=== PATIENT | male | born 1955 | race Caucasian/White ===

== ENCOUNTER 2020-01-26 10:42 | Inpatient (IN) | payer MEDICARE ==
[~2020-01-26] VITALS: Ht 177.8 cm; Wt 101.6 kg
--- NOTE | 2020-01-26 10:58 | PHYS DOC ---
Past History Past Medical History: Dementia, Depression, High Cholesterol Additional Past Medical Histor: CLL, parkinsonism, sleep apnea Past Surgical History: Pacemaker General Adult EDM: Chief Complaint: MEDICAL CLEARANCE HPI: HPI: Patient is a 64-year-old male who presents to the emergency department for evaluation medically prior to [facility]. He has a history of vascular dementia, and has had declining function over the past several months according to his , with anhedonia, excessive sleeping during the day and wakefulness at night, as well as thoughts of suicide at times. Has gradually been worsening to the point that he presented to the emergency department. His states that he has undergone medical work-up as an outpatient until this point but has not had any brain imaging since the fall. The patient himself denies any pain, is able to answer some basic questions but does not know his age, the month, day of the week. He does have a history of CLL and his states that his white blood cell count seems to run in the 15- 20,000 range, although I do not have any prior labs or medication list currently available. There are no alleviating or exacerbating factors to his symptoms. Review of Systems: Review of Systems: Constitutional: Denies fever or chills Eyes: Denies change in visual acuity HENT: Denies nasal congestion or sore throat Respiratory: Denies cough or shortness of breath Cardiovascular: Denies chest pain or edema GI: Denies abdominal pain, nausea, vomiting, bloody stools or diarrhea : Denies dysuria Musculoskeletal: Denies back pain or joint pain Integument: Denies rash Neurologic: Denies headache, focal weakness or sensory changes. Has had mental status changes gradually worsening over the past several months. Endocrine: Denies polyuria or polydipsia Lymphatic: Denies swollen glands Psychiatric: Denies depression or anxiety Heart Score: Risk Factors: Risk Factors: DM, Current or recent (<one month) smoker, HTN, HLP, family his tory of CAD, obesity. Risk Scores: Score 0 - 3: 2.5% MACE over next 6 weeks - Discharge Home Score 4 - 6: 20.3% MACE over next 6 weeks - Admit for Clinical Observation Score 7 - 10: 72.7% MACE over next 6 weeks - Early Invasive Strategies Physical Exam: PE: PHYSICAL EXAM: CONSTITUTIONAL: Well developed, well nourished HEAD: normocephalic, atraumatic EENT: PERRL, EOMI. Conjunctivae normal color, sclerae non-icteric; moist mucous membranes. NECK: Supple, non-tender; no meningismus. LUNGS: Lungs CTA, breathing even and unlabored. Normal air movement. HEART: Regular rate and rhythm, no murmur CHEST: No deformity; non-tender ABDOMEN: The abdomen is soft, and non-tender, no masses or bruits. EXTREM: Normal ROM; no deformity, no calf tenderness. Normal pulses palpable in all extremities. There is no pedal edema. SKIN: No rash; no diaphoresis NEURO: Alert; normal speech, impaired cognition with confusion, consistent with dementia, CN's grossly intact; strength grossly intact without focal deficit. BACK: No CVA TTP. Current Patient Data: Labs: Laboratory Tests Test 01/26/20 11:02 01/26/20 11:29 White Blood Count 12.2 x10^3/uL Red Blood Count 4.75 x10^6/uL Hemoglobin 14.2 g/dL Hematocrit 42.9 % Mean Corpuscular Volume 90 fL Mean Corpuscular Hemoglobin 30 pg Mean Corpuscular Hemoglobin Concent 33 g/dL Red Cell Distribution Width 14.9 % Platelet Count 214 x10^3/uL Neutrophils (%) (Auto) 32 % Lymphocytes (%) (Auto) 60 % Monocytes (%) (Auto) 6 % Eosinophils (%) (Auto) 2 % Basophils (%) (Auto) 0 % Neutrophils # (Auto) 3.9 x10^3uL Lymphocytes # (Auto) 7.4 x10^3/uL Monocytes # (Auto) 0.7 x10^3/uL Eosinophils # (Auto) 0.2 x10^3/uL Basophils # (Auto) 0.1 x10^3/uL Platelet Estimate Pending Sodium Level 140 mmol/L Potassium Level 3.8 mmol/L Chloride Level 102 mmol/L Carbon Dioxide Level 33 mmol/L Anion Gap 5 Blood Urea Nitrogen 27 mg/dL Creatinine 1.3 mg/dL Estimated GFR (Cockcroft-Gault) 55.6 BUN/Creatinine Ratio 21 Glucose Level 104 mg/dL Calcium Level 8.9 mg/dL Magnesium Level 2.3 mg/dL Total Bilirubin 0.4 mg/dL Aspartate Amino Transf (AST/SGOT) 19 U/L Alanine Aminotransferase (ALT/SGPT) 27 U/L Alkaline Phosphatase 108 U/L Total Protein 7.2 g/dL Albumin 3.6 g/dL Albumin/Globulin Ratio 1.0 Urine Collection Type Unknown Urine Color Yellow Urine Clarity Clear Urine pH 7.0 Urine Specific [place] 1.025 Urine Protein Neg Urine Glucose (UA) Neg mg/dL Urine Ketones (Stick) Neg mg/dL Urine Blood Trace Urine Nitrite Neg Urine Bilirubin Neg Urine Urobilinogen Dipstick 0.2 mg/dL Urine Leukocyte Esterase Neg Urine RBC Occ /HPF Urine WBC Occ /HPF Urine Squamous Epithelial Cells None /LPF Urine Bacteria 0 /HPF Urine Mucus Slight /LPF EKG: EKG: [] Normal sinus rhythm at a rate of 79 bpm with occasional APCs, leftward axis, normal intervals. There are no acute ischemic ST/T changes. Radiology/Procedures: Radiology/Procedures: PROCEDURE: CT HEAD WO CONTRAST Examination: CT HEAD WO CONTRAST History: Reason: AMS / Spl. Instructions: / History: Comparison/Correlation: None Findings: Axial images of the head were obtained without contrast. Atrophy is present. Mild chronic ischemic change of white matter noted. No intracranial hemorrhage, midline shift, or mass effect. Ventricles are large in size but symmetric. Bony structures are unremarkable. Calcification along the falx and tentorium is notable. Impression: Atrophy is present. Ventricular cardiomegaly presumably related to volume loss is present. Correlate for possibility of normal pressure hydrocephalus. [] Course & Med Decision Making: Course & Med Decision Making Pertinent Labs and Imaging studies reviewed. (See chart for details) [] The patient's condition remains stable. He is medically clear for behavioral health admission. Michelleon Disclaimer: Davonte Disclaimer: This electronic medical record was generated, in whole or in part, using a voice recognition dictation system. Departure Departure: Impression: Primary Impression: Dementia Additional Impression: Depression Disposition: ADMITTED INPATIENT Condition: STABLE Referrals: ZAMZAM BALL MD (PCP) Justification of Admission: Justification of Admission: Justification of Admission Dx: Yes Altered Mental Status: Altered Mental Status KATIE LARSON MD Jan 26, 2020 10:58
[2020-01-26 11:24] LABS: BASO # 0.1 x10^3/uL (0.0-0.2); BASO % 0 % (0-3); EOS # 0.2 x10^3/uL (0.0-0.7); EOS % 2 % (0-3); HEMATOCRIT 42.9 % (39.0-53.0); HEMOGLOBIN 14.2 g/dL (13.0-17.5); LYMPH # 7.4 x10^3/uL (1.0-4.8); LYMPH % 60 % (24-48); MEAN CORPUSCULAR HEMOGLOBIN 30 pg (25-35); MEAN CORPUSCULAR HGB CONC 33 g/dL (31-37); MEAN CORPUSCULAR VOLUME 90 fL (79-100); MONO # 0.7 x10^3/uL (0.0-1.1); MONO % 6 % (0-9); NEUT # 3.9 x10^3uL (1.8-7.7); NEUT % 32 % (31-73); PLATELET COUNT 214 x10^3/uL (140-400); RED BLOOD COUNT 4.75 x10^6/uL (4.30-5.70); RED CELL DISTRIBUTION WIDTH 14.9 % (11.5-14.5); WHITE BLOOD COUNT 12.2 x10^3/uL (4.0-11.0)
--- NOTE | 2020-01-26 11:28 | RAD ---
Examination: CT HEAD WO CONTRAST History: Reason: AMS / Spl. Instructions: / History: Comparison/Correlation: None Findings: Axial images of the head were obtained without contrast. Atrophy is present. Mild chronic ischemic change of white matter noted. No intracranial hemorrhage, midline shift, or mass effect. Ventricles are large in size but symmetric. Bony structures are unremarkable. Calcification along the falx and tentorium is notable. Impression: Atrophy is present. Ventricular cardiomegaly presumably related to volume loss is present. Correlate for possibility of normal pressure hydrocephalus. Electronically signed by: Andrea Landrum MD (01/26/2020 11:25 AM) [id number]
[2020-01-26 11:30] LABS: CALCIUM 8.9 mg/dL (8.5-10.1); CREATININE 1.3 mg/dL (0.7-1.3); GFR 55.6; POTASSIUM 3.8 mmol/L (3.5-5.1)
[2020-01-26 11:35] LABS: ALBUMIN 3.6 g/dL (3.4-5.0); MAGNESIUM 2.3 mg/dL (1.8-2.4); TOTAL BILIRUBIN 0.4 mg/dL (0.2-1.0); TOTAL PROTEIN 7.2 g/dL (6.4-8.2)
[2020-01-26 12:04] LABS: BACTERIA,URINE 0 /HPF (0-FEW); BILIRUBIN,URINE NEG (NEG); CLARITY,URINE CLEAR; COLOR,URINE YELLOW; GLUCOSE,URINE NEG (NEG); NITRITE,URINE NEG (NEG); RBC,URINE OCC /HPF (0-2); UROBILINOGEN,URINE 0.2 mg/dL (0.2 mg/dL); WBC,URINE OCC /HPF (0-4)
--- NOTE | 2020-01-26 12:21 | EKG ---
[address] [address] Test Date: 2020-01-26 Test Time: 11:26:06 Pat Name: SHAYNE PINO Department: Room: Gender: M Insurance Assistant: : 1955 Requested By: KATIE LARSON Order Number: [id number] Reading MD: Measurements Intervals [place] Rate: 79 P: MT: QRS: -15 QRSD: 92 T: 13 QT: 396 QTc: 460 Interpretive Statements IRREGULAR RHYTHM, NO P-WAVE FOUND VENTRICULAR PREMATURE COMPLEX(ES) LEFTWARD AXIS CONSIDER RIGHT VENTRICULAR HYPERTROPHY ABNORMAL ECG RI6.02 No previous ECG available for comparison
--- NOTE | 2020-01-26 13:30 | NUR ---
Admission Note with Justification for Admission to [facility] Patient admitted to [facility] for protective oversight for emergency stabilization of acute psychiatric crisis. Pt admitted from: Home where he lives with his Mode of arrival: POV Accompanied By: EMS from the ER Precipitating behaviors that initiated intake and admission: It was reported that patient has been lethargic and anxious. He has been refusing medications at times, staying up all night and sleeping all day. He has no will to live or thrive. According to his he is suicidal but has no plan. He is depressed and confused and aware of his declining cognition. Description of failure of out patient attempts at stabilization in previous setting list behavior and medication trials: patient has been seen by a neurologist and receives psychological counseling. He has had out patient psychoactive medication management done by Emi KILLIAN. He was referred by his PCP office. They have tried Namenda and sertraline. Behaviors and assessment findings upon admission: Patient arrived on unit accompanied by EMS after being cleared medically through [facility]. Patients provided transportation from their home in [place]. Patient was clean and well dressed. When nurse assessed him he had trouble recalling his date, what is did for a living, the current year and almost every other question asked, he was polite but visibly upset that he could not answer the questions. He became frustrated at his lack of being able to find words and remember the answers to questions and became tearful, he is aware that his memory is declining. He denied SI when this nurse asked him but was tearful for most of our conversation. He stated that he and his had moved from [place] three years ago, they came to [place] because she has family here. Vital signs were obtained, belongings inventoried and patient photo taken. Patient stated he was hungry and lunch was given to patient in day room. After arriving in day room he stated he was not hungry. Patients had left a note for [facility] staff that stated that patient "does not like loud noises. He is sensitive to touch. He does not care for fried food and is easily startled. He feels "internally and externally" cold a lot". She also stated that he took his morning medications this morning. Patient is a poor historian about his medical history. He did recall that he has a pacemaker. The rest of the medical history was obtained from the records his PCP sent prior to admission. Plan: Admit for protective oversight for adjustment and stabilization of medications, behaviors and mood. Intense treatment regimen including groups, medication adjustments, therapy, consistent regimen for ADL's, self care, and sleep hygiene. Daily monitoring by Inpatient staff, Psychiatry, and Medical Physician.
[2020-01-26 14:13] VITALS: BP 146/92
[2020-01-26] MEDS ORDERED: METHYL SALICYLATE/MENTHOL TOPICAL OINTMENT 57GM TUBE. TP PRN (14:45)
[2020-01-26] MEDS ORDERED: ACETAMINOPHEN 325 MG TABLET PO PRN (14:45)
[2020-01-26] MEDS ORDERED: MAG HYDROX/AL HYDROX/SIMETH 30 ML ORAL.SUSP PO PRN (14:45)
[2020-01-26 16:55] VITALS: BP 143/73
[2020-01-26] MEDS ORDERED: LACT1CAP29 PO (17:36)
[2020-01-26] MEDS ORDERED: LEVE500T56 PO (17:36)
[2020-01-26] MEDS ORDERED: CALC-144 PO (17:36)
[2020-01-26] MEDS ORDERED: MEMA10TA PO (17:36)
[2020-01-26] MEDS ORDERED: KRIL1CAP21 PO (17:36)
[2020-01-26] MEDS ORDERED: MULT1TAB13 PO (17:36)
[2020-01-26] MEDS ORDERED: MAGN200T PO (17:36)
[2020-01-26] MEDS ORDERED: AMAN100T PO (17:36)
[2020-01-26] MEDS ORDERED: SERT50TA PO (17:36)
[2020-01-26] MEDS: OMEGA-3 FATTY ACIDS/FISH OIL 1,000 MG CAPSULE. PO SCH (21:05)
[2020-01-26] MEDS: levETIRAcetam 500 MG TABLET PO SCH (21:05)
[2020-01-26] MEDS: AMANTADINE HCL 100 MG CAPSULE PO SCH (21:06)
[2020-01-26] MEDS: MAGNESIUM OXIDE 400 MG TABLET PO SCH (21:06)
[2020-01-26] MEDS: MEMANTINE 10 MG TABLET. PO SCH (21:06)
--- NOTE | 2020-01-26 22:07 | HP ---
ADMIT DATE: 01/26/2020 PSYCHIATRIC ADMISSION HISTORY/EVALUATION This note covers elements not covered in my initial note 01/26/2020. SUBJECTIVE: I met with the patient evening of 01/26/2020 at length in his room to evaluate and gather history. Previously discussed with Ledy Gardiner, pricing coordinator. IDENTIFYING DATA: The patient is a 64-year-old male referred by his primary care physician and referred from his home where he lives with his . He has been confused, cognitively declining, lethargic, anxious with no will to live. He has been sleeping all day, has voiced suicidal ideation with no plan. He is frequently up at night. He has failed outpatient psychiatric intervention, with overall coming this referral from his primary care physician, Dr. Feng Linares from the [facility]. CHIEF COMPLAINT: "I don't know why I need to be here. 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 He has been living at home with his , recently getting more depressed, hopeless, helpless, worthless with sleep disturbance and voicing suicidal ideation with no plans, intent or attempt. 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 No symptoms of bipolar disorder, suicidal or homicidal ideation, other than what is noted above. PAST PSYCHIATRIC HISTORY: As above. MEDICAL HISTORY: Positive for chronic lymphocytic leukemia, hyperlipidemia, osteoarthritis, Parkinson's disease, sleep apnea, prediabetes, pacemaker in place, possible seizure disorder, sleep apnea and does use a CPAP. ACCU-CHEKS: None. ALLERGIES: Negative. CODE STATUS: DNR. Ambulates independently. DIET: Regular, cardiac. CURRENT PSYCHOTROPICS: Keppra 500 mg b.i.d., Namenda 10 mg b.i.d., Zoloft 100 mg a day. FAMILY HISTORY: Noncontributory. SOCIAL HISTORY: No alcohol, drug abuse, physical, sexual or elder abuse history is noted. Not known to be a perpetrator. The patient used to live in [place] with his and recently moved to the [facility] to be closer to his 's parents who were in deteriorating health. REVIEW OF SYSTEMS: No CV, , pulmonary, eye, ENT system symptoms on review. MENTAL STATUS EXAMINATION: The patient is oriented to himself and situation. Speech is coherent, has some latency. Abstraction fair, computation impaired, language function intact, attention span short. Mood and affect depressed. He knew the president was president Lc, was unaware of the year, date, frustrated at the short-term memory deficits. LABORATORY DATA: Reviewed. IMPRESSION: Major neurocognitive disorder, multifactorial, possibly consequent to Parkinson's disease and vascular with posterior cortical atrophy syndrome; anxiety disorder, unspecified; impulse control disorder, unspecified; major depressive disorder. Rest as above. PLAN: Admit to Geropsychiatry Unit at [facility]. I will see the patient daily individually from a psychiatric standpoint. Medical followup with Dr. Ramos. Continue the patient on his current psychotropics. Make adjustments as clinically indicated. Estimated length of stay 10-12 days. We will observe the patient's baseline, then adjust her psychotropics as clinically indicated. For now maintain Keppra 500 b.i.d., Namenda 10 b.i.d., Zoloft 100 mg a day. DISPOSITION: Plans possibly home with his for senior living placement depending on his progress. HUBERT PICKERING MD DR: KEHINDE/bryn JOB#: [id number] / [id number]
--- NOTE | 2020-01-26 22:12 | NUR ---
PT seen in his room, sitting in chair. PT slightly agitated when speaking about reasoning for being here. PT with trouble remembering things and gets upset about that. Explained to just take his time and it is fine if he has trouble remembering. PT was cooperative with assessment and medication administration.
--- NOTE | 2020-01-26 22:29 | PDOC ---
Exam Note: Xander Note: Please also refer to the separate dictated note~for this date of service dictated separately.~Patient seen individually. Discussed the patient with Nursing staff reviewed the chart.~Reviewed interim history and current functioning. Reviewed vital signs,~Labs/ Radiology~and current medications noted below. Continue current treatment with the changes noted in the dictated addendum note Assessment: Vital Signs/I&O: Vital Signs Date Time Temp Pulse Resp B/P (MAP) Pulse Ox O2 Delivery O2 Flow Rate FiO2 01/26/20 16:55 98.2 76 18 143/73 (96) 96 01/26/20 10:56 Room Air Labs: Laboratory Tests Test 01/26/20 11:02 01/26/20 11:29 White Blood Count 12.2 x10^3/uL (4.0-11.0) H Red Blood Count 4.75 x10^6/uL (4.30-5.70) Hemoglobin 14.2 g/dL (13.0-17.5) Hematocrit 42.9 % (39.0-53.0) Mean Corpuscular Volume 90 fL (79-100) Mean Corpuscular Hemoglobin 30 pg (25-35) Mean Corpuscular Hemoglobin Concent 33 g/dL (31-37) Red Cell Distribution Width 14.9 % (11.5-14.5) H Platelet Count 214 x10^3/uL (140-400) Neutrophils (%) (Auto) 32 % (31-73) Lymphocytes (%) (Auto) 60 % (24-48) H Monocytes (%) (Auto) 6 % (0-9) Eosinophils (%) (Auto) 2 % (0-3) Basophils (%) (Auto) 0 % (0-3) Neutrophils # (Auto) 3.9 x10^3uL (1.8-7.7) Lymphocytes # (Auto) 7.4 x10^3/uL (1.0-4.8) H Monocytes # (Auto) 0.7 x10^3/uL (0.0-1.1) Eosinophils # (Auto) 0.2 x10^3/uL (0.0-0.7) Basophils # (Auto) 0.1 x10^3/uL (0.0-0.2) Sodium Level 140 mmol/L (136-145) Potassium Level 3.8 mmol/L (3.5-5.1) Chloride Level 102 mmol/L (98-107) Carbon Dioxide Level 33 mmol/L (21-32) H Anion Gap 5 (6-14) L Blood Urea Nitrogen 27 mg/dL (8-26) H Creatinine 1.3 mg/dL (0.7-1.3) Estimated GFR (Cockcroft-Gault) 55.6 BUN/Creatinine Ratio 21 (6-20) H Glucose Level 104 mg/dL (70-99) H Calcium Level 8.9 mg/dL (8.5-10.1) Magnesium Level 2.3 mg/dL (1.8-2.4) Total Bilirubin 0.4 mg/dL (0.2-1.0) Aspartate Amino Transferase (AST) 19 U/L (15-37) Alanine Aminotransferase (ALT) 27 U/L (16-63) Alkaline Phosphatase 108 U/L (46-116) Total Protein 7.2 g/dL (6.4-8.2) Albumin 3.6 g/dL (3.4-5.0) Albumin/Globulin Ratio 1.0 (1.0-1.7) Urine Collection Type Unknown Urine Color Yellow Urine Clarity Clear Urine pH 7.0 Urine Specific [place] 1.025 Urine Protein Neg (NEG-TRACE) Urine Glucose (UA) Neg mg/dL (NEG) Urine Ketones (Stick) Neg mg/dL (NEG) Urine Blood Trace (NEG) Urine Nitrite Neg (NEG) Urine Bilirubin Neg (NEG) Urine Urobilinogen Dipstick 0.2 mg/dL (0.2 mg/dL) Urine Leukocyte Esterase Neg (NEG) Urine RBC Occ /HPF (0-2) Urine WBC Occ /HPF (0-4) Urine Squamous Epithelial Cells None /LPF Urine Bacteria 0 /HPF (0-FEW) Urine Mucus Slight /LPF Current Medications: Meds: Current Medications Medications (Trade) Dose Ordered Sig/Maribel Route PRN Reason Start Time Stop Time Status Last Admin Dose Admin Levetiracetam (Keppra) 500 mg BID PO 01/26/20 21:00 01/26/20 21:05 Memantine (Namenda) 10 mg BID PO 01/26/20 21:00 01/26/20 21:06 Amantadine HCl (Symmetrel) 100 mg BID PO 01/26/20 21:00 01/26/20 21:06 Fish Oil (Fish Oil) 1,000 mg HS PO 01/26/20 21:00 01/26/20 21:05 Magnesium Oxide (Magnesium Oxide) 100 mg HS PO 01/26/20 21:00 01/26/20 21:06 I have reviewed the current psychotropics carefully including drug interactions. Risk benefit ratio favors no change other than as noted in my dictated progress note. Diagnosis: Problems: (1) Parkinson disease (2) Posterior cortical atrophy (3) Anxiety disorder, unspecified (4) Impulse control disorder, unspecified (5) Major neurocognitive disorder HUBERT PICKERING MD Jan 26, 2020 22:29
[2020-01-27] MEDS: OLANZapine 2.5 MG TABLET PO PRN ×3 (02:31→22:30)
--- NOTE | 2020-01-27 02:35 | NUR ---
Order received for Zyprexa 2.5 mg Q2H PRN psychosis, max 10 mg per 24 hours.
--- NOTE | 2020-01-27 02:35 | NUR ---
PT found on floor beside bed on rounding. When asked, the PT was unsure what happened and may have slid out of the bed. PT noted to not have sustained injury and complained of no pain.
[2020-01-27 05:45] VITALS: BP 116/71
[2020-01-27] MEDS: MULTIVITAMIN with MINERAL TABLET. PO SCH (09:52)
[2020-01-27] MEDS: LACTOBACILLUS RHAMNOSUS GG 1 CAPSULE. PO SCH (09:52)
[2020-01-27] MEDS: AMANTADINE HCL 100 MG CAPSULE PO SCH ×2 (09:52→21:15)
[2020-01-27] MEDS: CALCIUM CARB/VIT D3 500/200 TABLET PO SCH (09:52)
[2020-01-27] MEDS: MEMANTINE 10 MG TABLET. PO SCH ×2 (09:52→21:15)
[2020-01-27] MEDS: levETIRAcetam 500 MG TABLET PO SCH ×2 (09:52→21:15)
[2020-01-27] MEDS: SERTRALINE 100 MG TABLET. PO SCH (09:53)
--- NOTE | 2020-01-27 10:17 | NUR ---
patient has been agitated, walking and pacing, patient had unobserved fall in room at 0930. Patient currently sitting in W/C in day room under supervision until radiology comes to take him for an xray. Addendum: 01/27/20 at 1122 by BEAN PAPPAS RN Patient stated that his back was painful. Vital signs WNL. Addendum: 01/27/20 at 1702 by BEAN PAPPAS RN patient does not remember falling or remember that his back hurts. After talking to Dr. Gould, we will consider this a behavior, as he did it last night also. Cancelled xray of lumbar spine.
--- NOTE | 2020-01-27 11:44 | NUR ---
Nurse spoke at length with patients /DPOA. She stated that she would prefer that he NOT be allowed to make phone calls at this time. She stated that he had called her yesterday evening and was crying on the phone and asking her to come get him. This then caused her to cry and be upset. Nurse reassured her that many family place phone restrictions and that if she wanted to talk to him she can call him. DPOA also asked when the best time to call to speak to nurse is. This nurse advised that after 1000 but before 1700 and then not at night until 2100. She expressed understanding. Nurse also spoke with DPOA about patient "slipping" out of bed last night and the fall from this morning. DPOA was very understanding and nurse stated we would let her know if anything abnormal showed up on the xray.
[2020-01-27 14:49] LABS: THYROID STIM HORMONE (TSH) 2.135 uIU/mL (0.358-3.740)
[2020-01-27 15:46] VITALS: BP 129/85
[2020-01-27 16:07] LABS: THYROXINE 6.8 ug/dL (4.5-12.0)
--- NOTE | 2020-01-27 16:58 | NUR ---
Dr Ramos stated that patient has normal pressure hydrocephaly and his ventricles are very dilated. Dr Ramos feels patient may be a good candidate for a shunt and would like Dr Henderson opinion.
--- NOTE | 2020-01-27 18:08 | CONS ---
DATE OF CONSULTATION: 01/26/2020 REASON FOR CONSULTATION: Medical management patient open. HISTORY OF PRESENT ILLNESS: The patient is a 64-year-old male patient who was [facility] psychiatric stabilization. He apparently has been more confused, cognitively declining, lethargic, anxious with no will to live. He has been sleeping all day. He has voiced suicidal ideation with no plan. He is frequently up at nighttime. He has failed outpatient psychiatric intervention and that resulted in his referral to this unit. The patient himself apparently realizes that he is not doing well and asks me if I am able to flex him; however, he was not been able to be specific about towards bothering him and he referred me to his to know about all his medical problem. PAST MEDICAL HISTORY: Significant for Parkinson's disease, chronic lymphatic leukemia, hyperlipidemia, obstructive sleep apnea, severe cortical atrophy syndrome. PAST SURGICAL HISTORY: Significant for pacemaker placement. He apparently has also possible seizure disorder. ALLERGIES: He has no known drug allergies. MEDICATIONS: He is currently on following medications: He is on Keppra 500 mg twice a day, sertraline for Zoloft 100 mg daily, amantadine 100 mg twice a day, Namenda 10 mg twice a day, calcium carbonate with vitamin D one tablet once a day, magnesium 200 mg at bedtime, lactobacillus for probiotic 1 tablet once a day, multivitamin with mineral 1 tablet once a day, and omega 3 fatty acids 1 tablet once a day. FAMILY HISTORY: Noncontributory. SOCIAL HISTORY: Apparently lives with his . He apparently used to live in [place] with his and recently moved to [facility] to be closer to his 's parents who are in declining health. REVIEW OF SYSTEMS: Unobtainable. PHYSICAL EXAMINATION: GENERAL: When I examined him, he looked well and was sitting comfortably in his chair, in no apparent respiratory distress. There was no pallor, jaundice, cyanosis or thyromegaly. No jugular venous distention or limb edema. VITAL SIGNS: His heart rate was 75, blood pressure was 129/85, temperature was 98.3, respiratory rate was 18 and oxygen saturation was 98%. EXTREMITIES: He was sitting in his wheelchair. I have not observed him walking with apparently the nursing staff felt that he is unsteady on his feet. LABORATORY DATA: His lab work showed that his white cell count was 12,200, hemoglobin 14, hematocrit 42, MCV 90 and platelet count 214,000. His manual differential showed 32% polymorphs, 60% lymphocytes and 6% monocytes, consistent with the diagnosis of chronic lymphatic leukemia. Serum sodium was 140, potassium 3.8, chloride 102, bicarbonate 33, anion gap of 5, BUN 27, creatinine 1.3, estimated GFR was 55 mL per minute. His glucose was 104, calcium was 8.9, magnesium 2.3. Serum iron, TIBC and iron saturation were all consistent, we will replenish his iron stores. His total bilirubin, AST, ALT, alkaline phosphatase were normal. Total protein was 7.2, albumin was 3.6. His serum triglycerides were slightly elevated 226. Total cholesterol was 254, LDL was 173, VLDL was 45 and HDL cholesterol was 36, the ratio was 7. His vitamin B12 was and 541 pg/mL and his 25-hydroxy vitamin D was 40 ng/mL, which is well within therapeutic range. TSH was normal at 2.135. His urinalysis was essentially unremarkable and his treponema pallidum antibodies nonreactive. He has had a CT scan of the head, which showed atrophy is present. Ventricular cardiomegaly presumably related to volume loss is present, correlates with positive for possibility of normal pressure hydrocephalus. Given the ventriculomegaly and his young age, I would probably refer him to a neurologist and neurosurgeon as not normal pressure hydrocephalus is treatable and I have seen some little bit remarkable recovery. I will consult Dr. Henderson to see whether this patient should be considered for normal pressure hydrocephalus. JIHAN ANDINO MD DR: DARLENE/bryn JOB#: [id number] / [id number]
[2020-01-27] MEDS: OMEGA-3 FATTY ACIDS/FISH OIL 1,000 MG CAPSULE. PO SCH (21:15)
[2020-01-27] MEDS: MAGNESIUM OXIDE 400 MG TABLET PO SCH (21:15)
[2020-01-27] MEDS: traZODone 50 MG TABLET. PO PRN ×2 (21:24→22:50)
--- NOTE | 2020-01-27 22:12 | PDOC ---
Exam Note: Xander Note: Please also refer to the separate dictated note~for this date of service dictated separately.~Patient seen individually. Discussed the patient with Nursing staff reviewed the chart.~Reviewed interim history and current functioning. Reviewed vital signs,~Labs/ Radiology~and current medications noted below. Continue current treatment with the changes noted in the dictated addendum note Assessment: Vital Signs/I&O: Vital Signs Date Time Temp Pulse Resp B/P (MAP) Pulse Ox O2 Delivery O2 Flow Rate FiO2 01/27/20 15:46 98.3 75 18 129/85 (100) 98 01/27/20 05:45 Room Air I & O 01/26/20 01/26/20 01/27/20 15:00 23:00 07:00 Intake Total 0 ml 100 ml Balance 0 ml 100 ml Current Medications: Meds: Current Medications Medications (Trade) Dose Ordered Sig/Maribel Route PRN Reason Start Time Stop Time Status Last Admin Dose Admin Sertraline HCl (Zoloft) 100 mg DAILY PO 01/27/20 09:00 01/27/20 09:53 Calcium/Vitamin D (Oscal D 500mg/ 200uts) 1 tab DAILY PO 01/27/20 09:00 01/27/20 09:52 Lactobacillus Rhamnosus (Culturelle) 1 cap DAILY PO 01/27/20 09:00 01/27/20 09:52 Multivitamins/ Calcium (Thera-M Plus) 1 tab DAILY PO 01/27/20 09:00 01/27/20 09:52 Olanzapine (ZyPREXA) 2.5 mg PRN Q2HRS PRN PO PSYCHOSIS 01/27/20 02:00 01/27/20 10:12 Trazodone HCl (Desyrel) 50 mg PRN QHS PRN PO INSOMNIA, MAY REPEAT X1 01/27/20 21:00 01/27/20 21:24 I have reviewed the current psychotropics carefully including drug interactions. Risk benefit ratio favors no change other than as noted in my dictated progress note. Diagnosis: Problems: (1) Parkinson disease (2) Impulse control disorder, unspecified (3) Anxiety disorder, unspecified (4) Major neurocognitive disorder (5) Posterior cortical atrophy (6) Dementia in Alzheimer's disease with delusions (7) Dementia in Alzheimer's disease with depression (8) Dementia of the Alzheimer's type with early onset with behavioral disturbance (9) Dementia, vascular, with depression (10) Dementia, vascular, with delusions HUBERT PICKERING MD Jan 27, 2020 22:12
[2020-01-28 01:07] LABS: HEMOGLOBIN A1C 5.7 % (4.8-5.6)
--- NOTE | 2020-01-28 02:21 | NUR ---
Last evening pt was in bed at [facility] and was cooperative and social with staff. Meds were taken whole with some prompting and assistance. After going to bed he was restless and PRN trazodone given HS. At 2300 PRN trazodone repeated along with zyprexa. Eventually he fell to sleep.
[2020-01-28 05:32] VITALS: BP 139/74
[2020-01-28] MEDS: AMANTADINE HCL 100 MG CAPSULE PO SCH ×2 (08:40→20:19)
[2020-01-28] MEDS: MULTIVITAMIN with MINERAL TABLET. PO SCH (08:41)
[2020-01-28] MEDS: LACTOBACILLUS RHAMNOSUS GG 1 CAPSULE. PO SCH (08:41)
[2020-01-28] MEDS: levETIRAcetam 500 MG TABLET PO SCH ×2 (08:41→20:19)
[2020-01-28] MEDS: SERTRALINE 100 MG TABLET. PO SCH (08:41)
[2020-01-28] MEDS: MEMANTINE 10 MG TABLET. PO SCH ×2 (08:41→20:19)
[2020-01-28] MEDS: CALCIUM CARB/VIT D3 500/200 TABLET PO SCH (08:41)
--- NOTE | 2020-01-28 14:45 | NUR ---
ACTIVITY THERAPY ASSESSMENT completed based on observation, interview, and notes. Pt was sitting in the day room and was willing to let AT ask some questions. Pt was asked by AT if the assessment could be done in his room which he was okay with so AT took pt to room. Pt was calm and pleasant during the time of assessment. Pt states that he likes to read a lot (the hobbit), watch TV, listen to 90's music, ride bicycles, running and surfing. Pt stated that he really didn't want to see his family. Pt said that with his illness it didn't really matter what he did with his friends. At this point in time it was visible that patient felt defeated by his memory loss. Pt reported that he feels stressed because with his illness he can no longer do anything and it has been really tough on him. Pt says that he relies on his for everything and he feels bad that he isn't able to contribute. Pt was back and forth with how many kids he had and was becoming frustrated with his forgetfullness. Pt says that he has a hard time seeing which is why he has glasses but his hearing is good. At this point in time CNAs came into to take pt vitals which he was then joking with staff. Assessment continued and the pt reported some unsteadiness which is why he has a wheelchair. AT mentioned that our exercise groups are done in a chair to accommodate patients. Pt expressed interest in exercise groups and said that he needs to exercise and mentioned that he was a physically active person before illness. Pt said that he lived in [place] which is where he picked up his hobby of surfing. Pt stated again that his memory loss was 'just so hard' and that he 'can't remember anything'. Pt was unable to recall the hospital name or the city the hospital is located in. Pt told AT that the reason for his admission was 'because my brain isn't working.' AT asked pt where he was before he was admitted which the pt didn't understand; therefore, AT restated the question. Pt reports that he came from home and lives with his . Pt dropped glasses twice at the end of assessment and had a hard time holding them as he would occasionally jerk. Pt became frustrated that he could not put glasses on face so AT assisted him. Pt then became tearful that he is forgetful and needs assistance. AT asked pt if he wanted to return to dayroom which he did. AT assisted pt with wheelchair behind him down to the dayroom where AT then helped pt sit back in wheelchair. Pt's hands were very cold when being assisted back into wheelchair. Initial goal is aimed to increase time management and motivation skills. Pt will participate in at least one individual or group Activity Therapy session per week.
--- NOTE | 2020-01-28 15:29 | NUR ---
Dr Henderson notified of consult.
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
[2020-01-28 16:05] VITALS: BP 133/71
--- NOTE | 2020-01-28 18:38 | NUR ---
Patient has been calm and compliant. Is walking at times, otherwise in wheelchair. Pt has no complaints. Pt has expressive aphasia. WCTM.
[2020-01-28] MEDS: OMEGA-3 FATTY ACIDS/FISH OIL 1,000 MG CAPSULE. PO SCH (20:19)
[2020-01-28] MEDS: MAGNESIUM OXIDE 400 MG TABLET PO SCH (20:19)
[2020-01-28] MEDS: traZODone 50 MG TABLET. PO PRN (20:19)
--- NOTE | 2020-01-28 22:23 | PDOC ---
Exam Note: Xander Note: Please also refer to the separate dictated note~for this date of service dictated separately.~Patient seen individually. Discussed the patient with Nursing staff reviewed the chart.~Reviewed interim history and current functioning. Reviewed vital signs,~Labs/ Radiology~and current medications noted below. Continue current treatment with the changes noted in the dictated addendum note Assessment: Vital Signs/I&O: Vital Signs Date Time Temp Pulse Resp B/P (MAP) Pulse Ox O2 Delivery O2 Flow Rate FiO2 01/28/20 16:05 97.2 83 18 133/71 (91) 98 01/27/20 05:45 Room Air I & O 01/27/20 01/27/20 01/28/20 15:00 23:00 07:00 Intake Total 720 ml Balance 720 ml Current Medications: I have reviewed the current psychotropics carefully including drug interactions. Risk benefit ratio favors no change other than as noted in my dictated progress note. Diagnosis: Problems: (1) Parkinson disease (2) Impulse control disorder, unspecified (3) Anxiety disorder, unspecified (4) Major neurocognitive disorder (5) Posterior cortical atrophy (6) Dementia, vascular, with depression (7) Dementia, vascular, with delusions (8) Dementia in Alzheimer's disease with depression (9) Dementia in Alzheimer's disease with delusions (10) Dementia of the Alzheimer's type with early onset with behavioral disturban HUBERT Gonzalez MD Jan 28, 2020 22:23
[2020-01-29] MEDS: traZODone 50 MG TABLET. PO PRN ×3 (00:13→22:17)
[2020-01-29] MEDS: MAGNESIUM HYDROXIDE 2,400 MG/30 ML ORAL.SUSP. PO PRN (00:13)
--- NOTE | 2020-01-29 02:44 | NUR ---
Pt has been in her room tonight and has been pleasant and cooperative. She reports sore pain from Left ear
--- NOTE | 2020-01-29 02:45 | NUR ---
Last evening pt was in day room and was pleasant and cooperative. Meds were taken whole with some assistance. At HS he was cooperative with cares and laid fidgeting in bed and remained awake. PRN Trazodone was given at HS then repeated dose at 0000. Since that time he has been sleeping off and on.
[2020-01-29 05:48] VITALS: BP 112/70
[2020-01-29] MEDS: OLANZapine 2.5 MG TABLET PO PRN (07:50)
--- NOTE | 2020-01-29 08:00 | PDOC ---
Exam Note: Xander Note: This note is a late entry for 01/27/2020 covers elements not covered in my initial note. Subjective: The patient was seen individually in the morning of 01/27/2020 with treatment team meeting with Ryder Thakkar RN (social service staff), [place] [facility] staff. The patient slept 1-1/4 hours. Appetite is 100%. The has requested no phone calls since the patient blames her for admitting him here. He minimizes his memory deficits, gets agitated. Received Zyprexa at 2.30 p.m. later., had to be repeated. He tries to put himself on the floor per Nita SPRING. Review of Systems: Ambulation reasonable. No CV, , pulmonary, eye, ENT system symptoms on review. Mental Status Exam: Oriented to himself and at times situation, not very verbal. Insight and judgment, recent and remote memory, attention and concentration, fund of knowledge is poor consistent with his diagnosis. Laboratory Data: Reviewed. Impression: Major neurocognitive disorder, possible vascular with delusion, depression behavioral disturbance. Major depressive disorder. Anxiety disorder unspecified. Rest unchanged from admission. Plan: Dr. Ramos has requested Neurology consult for suggestions on management of possible normal pressure hydrocephalus. He slept just 1-1/4 hours previous night. We will start trazodone 50 mg h.s. p.r.n. insomnia. Continue Keppra 500 mg b.i.d. for seizures, Namenda 10 mg b.i.d.,Zoloft 100 mg a day, Zyprexa p.r.n. Adjust further as clinically indicated. Assessment: Vital Signs/I&O: Vital Signs Date Time Temp Pulse Resp B/P (MAP) Pulse Ox O2 Delivery O2 Flow Rate FiO2 01/29/20 05:48 98.3 70 18 112/70 (84) 93 Room Air I & O 01/28/20 01/28/20 01/29/20 15:00 23:00 07:00 Intake Total 480 ml 0 ml Balance 480 ml 0 ml Current Medications: I have reviewed the current psychotropics carefully including drug interactions. Risk benefit ratio favors no change other than as noted in my dictated progress note. Diagnosis: Problems: (1) Parkinson disease (2) Impulse control disorder, unspecified (3) Anxiety disorder, unspecified (4) Major neurocognitive disorder (5) Posterior cortical atrophy (6) Dementia, vascular, with depression (7) Dementia, vascular, with delusions (8) Dementia in Alzheimer's disease with depression (9) Dementia in Alzheimer's disease with delusions (10) Dementia of the Alzheimer's type with early onset with behavioral disturbance HUBERT PICKERING MD Jan 29, 2020 08:00
--- NOTE | 2020-01-29 08:08 | NUR ---
Pt is in the restroom, irritable and difficult to redirect. Pt is standing up and states he has not had a bowel movement in 3 days. Pt is shaking his fists and swinging at the air. His speech is pressured. Nurse provided emotional support and redirection. Pt was difficult to redirect. Pt demanded to call his so she "knows how I am being treated." Nurse reminded pt he was given milk of magnesia at bedtime. Nurse provided educations regarding MOM and then offered pt an alternative laxative at lunchtime if he as not had a bowel movement by then. Pt was redirected to the dayroom and offered a drink. PRN zyprexa given.
--- NOTE | 2020-01-29 08:19 | PDOC ---
Exam Note: Xander Note: This note is a late entry for 01/28/2020 covers elements not covered in my initial note. Subjective: The patient was seen individually in the evening of 01/28/2020. Per Kelsey SPRING, he slept 2-3/4 hours previous night. He was somewhat confused previous night. Today seems to have expressive aphasia. Awaiting Neurology consult with Dr. Henderson for questionable normal pressure hydrocephalus and for recommendations for this. Review of Systems: No CV, , pulmonary, eye, ENT system symptoms on review. Mental Status Exam: Oriented to himself. Insight and judgment, recent and remote memory, attention and concentration, fund of knowledge is poor consistent with his diagnoses. Laboratory Data: Reviewed. Impression: Major neurocognitive disorder, possible vascular with delusion, depression behavioral disturbance. Major depressive disorder. Anxiety disorder unspecified. Rest unchanged from admission. Plan: No change from initial note. Maintain Zoloft 100 mg a day, Zyprexa p.r.n., Namenda 10 mg b.i.d., Keppra 500 mg b.i.d., trazodone p.r.n. We may consider Wellbutrin as a augmentation for antidepressant. Neurology consult as noted. Assessment: Vital Signs/I&O: Vital Signs Date Time Temp Pulse Resp B/P (MAP) Pulse Ox O2 Delivery O2 Flow Rate FiO2 01/29/20 05:48 98.3 70 18 112/70 (84) 93 Room Air I & O 01/28/20 01/28/20 01/29/20 14:59 22:59 06:59 Intake Total 480 ml 0 ml Balance 480 ml 0 ml Current Medications: I have reviewed the current psychotropics carefully including drug interactions. Risk benefit ratio favors no change other than as noted in my dictated progress note. Diagnosis: Problems: (1) Major depressive disorder, recurrent episode (2) Parkinson disease (3) Impulse control disorder, unspecified (4) Anxiety disorder, unspecified (5) Major neurocognitive disorder (6) Posterior cortical atrophy (7) Dementia, vascular, with depression (8) Dementia, vascular, with delusions (9) Dementia in Alzheimer's disease with depression (10) Dementia in Alzheimer's disease with delusions (11) Dementia of the Alzheimer's type with early onset with behavioral disturbance HUBERT PICKERING MD Jan 29, 2020 08:19
[2020-01-29] MEDS: AMANTADINE HCL 100 MG CAPSULE PO SCH ×2 (08:50→21:03)
[2020-01-29] MEDS: CALCIUM CARB/VIT D3 500/200 TABLET PO SCH (08:50)
[2020-01-29] MEDS: MEMANTINE 10 MG TABLET. PO SCH ×2 (08:50→21:02)
[2020-01-29] MEDS: SERTRALINE 100 MG TABLET. PO SCH (08:50)
[2020-01-29] MEDS: LACTOBACILLUS RHAMNOSUS GG 1 CAPSULE. PO SCH (08:50)
[2020-01-29] MEDS: MULTIVITAMIN with MINERAL TABLET. PO SCH (08:50)
[2020-01-29] MEDS: levETIRAcetam 500 MG TABLET PO SCH ×2 (08:50→21:03)
--- NOTE | 2020-01-29 12:12 | NUR ---
Pt has trouble finding his words at times. Pt is compliant with his medication and assessment. No hallucinations or delusions noted.
[2020-01-29] MEDS ORDERED: MAGNESIUM CITRATE 296 ML SOLUTION. PO ONE (12:30)
[2020-01-29 17:01] VITALS: BP 157/82
[2020-01-29] MEDS: OMEGA-3 FATTY ACIDS/FISH OIL 1,000 MG CAPSULE. PO SCH (21:02)
[2020-01-29] MEDS: MAGNESIUM OXIDE 400 MG TABLET PO SCH (21:03)
--- NOTE | 2020-01-29 22:36 | PDOC ---
Exam Note: Xander Note: Please also refer to the separate dictated note~for this date of service dictated separately.~Patient seen individually. Discussed the patient with Nursing staff reviewed the chart.~Reviewed interim history and current functioning. Reviewed vital signs,~Labs/ Radiology~and current medications noted below. Continue current treatment with the changes noted in the dictated addendum note Assessment: Vital Signs/I&O: Vital Signs Date Time Temp Pulse Resp B/P (MAP) Pulse Ox O2 Delivery O2 Flow Rate FiO2 01/29/20 17:01 98.2 72 18 157/82 (107) 97 Room Air I & O 01/28/20 01/28/20 01/29/20 15:00 23:00 07:00 Intake Total 480 ml 0 ml Balance 480 ml 0 ml Current Medications: Meds: Current Medications Medications (Trade) Dose Ordered Sig/Maribel Route PRN Reason Start Time Stop Time Status Last Admin Dose Admin Magnesium Citrate (Citroma) 296 ml 1X ONCE PO 01/29/20 12:30 01/29/20 12:31 DC 01/29/20 12:56 I have reviewed the current psychotropics carefully including drug interactions. Risk benefit ratio favors no change other than as noted in my dictated progress note. Diagnosis: Problems: (1) Parkinson disease (2) Impulse control disorder, unspecified (3) Anxiety disorder, unspecified (4) Major neurocognitive disorder (5) Posterior cortical atrophy (6) Dementia, vascular, with depression (7) Dementia, vascular, with delusions (8) Dementia in Alzheimer's disease with depression (9) Dementia in Alzheimer's disease with delusions (10) Dementia of the Alzheimer's type with early onset with behavioral disturb ance (11) Major depressive disorder, recurrent episode HUBERT PICKERING MD Jan 29, 2020 22:36
--- NOTE | 2020-01-29 23:54 | NUR ---
Pt located in the dayroom this evening. Pt has trouble finding his words and appears to get frustrated easily. Compliant with crushed medications. PRN Trazodone administered with HS medications. Once in bed, pt began undressing and taking off his brief. Onesie placed on patient. Repeat Trazodone administered at 2215.
[2020-01-30 05:05] VITALS: BP 117/78
--- NOTE | 2020-01-30 07:46 | PDOC ---
Exam Note: Xander Note: This note is a late entry for 01/29/2020 covers elements not covered in my initial note. Subjective: The patient was seen individually in the evening of 01/29/2020. Per Ariane SPRING, he slept 1-1/4 hours previous night. He has been agitated, anxious, restless, paranoid. Received Zyprexa at 7.50 p.m. previous night but we will change this to Zyprexa sublingual to help with compliance. He has had no bowel movements. He received half a bottle of magnesium citrate. We will start Colace and Senokot combination. He remains restless, anxious. Review of Systems: He ambulates independently. No CV, , pulmonary, eye, ENT system symptoms on review. As I met with him he was quite frustrated at his memory loss. Mental Status Exam: Oriented to himself. Insight and judgment, recent and remote memory, attention and concentration, fund of knowledge is poor consistent with his diagnoses. Laboratory Data: Reviewed. Impression: Major neurocognitive disorder, possible vascular with delusion, depression behavioral disturbance. Major depressive disorder. Anxiety disorder unspecified. Plan: No change from initial note. Assessment: Vital Signs/I&O: Vital Signs Date Time Temp Pulse Resp B/P (MAP) Pulse Ox O2 Delivery O2 Flow Rate FiO2 01/30/20 05:05 97.9 77 18 117/78 (91) 95 01/29/20 17:01 Room Air I & O 01/29/20 01/29/20 01/30/20 15:00 23:00 07:00 Intake Total 480 ml 120 ml Balance 480 ml 120 ml Current Medications: Meds: Current Medications Medications (Trade) Dose Ordered Sig/Maribel Route PRN Reason Start Time Stop Time Status Last Admin Dose Admin Magnesium Citrate (Citroma) 296 ml 1X ONCE PO 01/29/20 12:30 01/29/20 12:31 DC 01/29/20 12:56 I have reviewed the current psychotropics carefully including drug interactions. Risk benefit ratio favors no change other than as noted in my dictated progress note. Diagnosis: Problems: (1) Major neurocognitive disorder (2) Impulse control disorder, unspecified (3) Anxiety disorder, unspecified (4) Major depressive disorder, recurrent episode (5) Dementia of the Alzheimer's type with early onset with behavioral disturbance (6) Dementia in Alzheimer's disease with delusions (7) Dementia in Alzheimer's disease with depression (8) Dementia, vascular, with delusions (9) Dementia, vascular, with depression HUBERT PICKERING MD Jan 30, 2020 07:46
[2020-01-30] MEDS: levETIRAcetam 500 MG TABLET PO SCH ×2 (08:55→20:11)
[2020-01-30] MEDS: LACTOBACILLUS RHAMNOSUS GG 1 CAPSULE. PO SCH (08:55)
[2020-01-30] MEDS: MULTIVITAMIN with MINERAL TABLET. PO SCH (08:58)
[2020-01-30] MEDS: AMANTADINE HCL 100 MG CAPSULE PO SCH ×2 (08:58→20:12)
[2020-01-30] MEDS: MEMANTINE 10 MG TABLET. PO SCH ×2 (08:58→20:11)
[2020-01-30] MEDS: POLYETHYLENE GLYCOL 3350 17 GM PACKET. PO SCH (08:58)
[2020-01-30] MEDS: CALCIUM CARB/VIT D3 500/200 TABLET PO SCH (08:58)
[2020-01-30] MEDS: SENNOSIDES/DOCUSATE 8.6/50MG TABLET. PO SCH (08:58)
[2020-01-30] MEDS: SERTRALINE 100 MG TABLET. PO SCH (08:58)
[2020-01-30 10:03] LABS: BASO # 0.1 x10^3/uL (0.0-0.2); BASO % 0 % (0-3); EOS # 0.3 x10^3/uL (0.0-0.7); EOS % 2 % (0-3); HEMATOCRIT 43.1 % (39.0-53.0); HEMOGLOBIN 14.4 g/dL (13.0-17.5); LYMPH # 7.5 x10^3/uL (1.0-4.8); MEAN CORPUSCULAR HEMOGLOBIN 30 pg (25-35); MEAN CORPUSCULAR HGB CONC 34 g/dL (31-37); MEAN CORPUSCULAR VOLUME 91 fL (79-100); MONO # 0.7 x10^3/uL (0.0-1.1); MONO % 5 % (0-9); NEUT # 4.8 x10^3uL (1.8-7.7); NEUT % 36 % (31-73); PLATELET COUNT 212 x10^3/uL (140-400); RED BLOOD COUNT 4.74 x10^6/uL (4.30-5.70); RED CELL DISTRIBUTION WIDTH 14.8 % (11.5-14.5); WHITE BLOOD COUNT 13.4 x10^3/uL (4.0-11.0)
[2020-01-30 10:21] LABS: ALBUMIN 3.6 g/dL (3.4-5.0); CALCIUM 8.7 mg/dL (8.5-10.1); CREATININE 1.3 mg/dL (0.7-1.3); GFR 55.6; POTASSIUM 3.4 mmol/L (3.5-5.1); TOTAL BILIRUBIN 0.8 mg/dL (0.2-1.0); TOTAL PROTEIN 7.3 g/dL (6.4-8.2)
--- NOTE | 2020-01-30 11:51 | NUR ---
Pt is calm, confused, cooperative, and compliant. No agitation, no aggression, no hallucinations. No delusions. He needs frequent reminders not to ambulate unassisted. He is compliant with his medication and assessment.
[2020-01-30 15:28] LABS: % BANDS 2 % (0-9); % LYMPHS 63 % (24-48); % MONOS 4 % (0-10); % SEGS 31 % (35-66)
[2020-01-30 15:33] LABS: PLT ESTIMATE DECREASED (ADEQUATE)
[2020-01-30 15:37] LABS: STOMATOCYTES PRESENT
[2020-01-30 15:43] VITALS: BP 127/79
[2020-01-30] MEDS: OMEGA-3 FATTY ACIDS/FISH OIL 1,000 MG CAPSULE. PO SCH (20:12)
[2020-01-30] MEDS: traZODone 50 MG TABLET. PO PRN (20:12)
[2020-01-30] MEDS: MAGNESIUM OXIDE 400 MG TABLET PO SCH (20:12)
--- NOTE | 2020-01-30 22:10 | PDOC ---
Exam Note: Xander Note: Please also refer to the separate dictated note~for this date of service dictated separately.~Patient seen individually. Discussed the patient with Nursing staff reviewed the chart.~Reviewed interim history and current functioning. Reviewed vital signs,~Labs/ Radiology~and current medications noted below. Continue current treatment with the changes noted in the dictated addendum note Assessment: Vital Signs/I&O: Vital Signs Date Time Temp Pulse Resp B/P (MAP) Pulse Ox O2 Delivery O2 Flow Rate FiO2 01/30/20 15:43 98.6 73 18 127/79 (95) 95 01/29/20 17:01 Room Air I & O 01/29/20 01/29/20 01/30/20 15:00 23:00 07:00 Intake Total 480 ml 120 ml Balance 480 ml 120 ml Labs: Laboratory Tests Test 01/30/20 09:25 White Blood Count 13.4 x10^3/uL (4.0-11.0) H Red Blood Count 4.74 x10^6/uL (4.30-5.70) Hemoglobin 14.4 g/dL (13.0-17.5) Hematocrit 43.1 % (39.0-53.0) Mean Corpuscular Volume 91 fL (79-100) Mean Corpuscular Hemoglobin 30 pg (25-35) Mean Corpuscular Hemoglobin Concent 34 g/dL (31-37) Red Cell Distribution Width 14.8 % (11.5-14.5) H Platelet Count 212 x10^3/uL (140-400) Neutrophils (%) (Auto) 36 % (31-73) Lymphocytes (%) (Auto) 56 % (24-48) H Monocytes (%) (Auto) 5 % (0-9) Eosinophils (%) (Auto) 2 % (0-3) Basophils (%) (Auto) 0 % (0-3) Neutrophils # (Auto) 4.8 x10^3uL (1.8-7.7) Lymphocytes # (Auto) 7.5 x10^3/uL (1.0-4.8) H Monocytes # (Auto) 0.7 x10^3/uL (0.0-1.1) Eosinophils # (Auto) 0.3 x10^3/uL (0.0-0.7) Basophils # (Auto) 0.1 x10^3/uL (0.0-0.2) Segmented Neutrophils % 31 % (35-66) L Band Neutrophils % 2 % (0-9) Lymphocytes % 63 % (24-48) H Monocytes % 4 % (0-10) Platelet Estimate Decreased (ADEQUATE) Stomatocytes Present Sodium Level 142 mmol/L (136-145) Potassium Level 3.4 mmol/L (3.5-5.1) L Chloride Level 104 mmol/L (98-107) Carbon Dioxide Level 33 mmol/L (21-32) H Anion Gap 5 (6-14) L Blood Urea Nitrogen 22 mg/dL (8-26) Creatinine 1.3 mg/dL (0.7-1.3) Estimated GFR (Cockcroft-Gault) 55.6 BUN/Creatinine Ratio 17 (6-20) Glucose Level 117 mg/dL (70-99) H Calcium Level 8.7 mg/dL (8.5-10.1) Total Bilirubin 0.8 mg/dL (0.2-1.0) Aspartate Amino Transferase (AST) 26 U/L (15-37) Alanine Aminotransferase (ALT) 28 U/L (16-63) Alkaline Phosphatase 119 U/L (46-116) H Total Protein 7.3 g/dL (6.4-8.2) Albumin 3.6 g/dL (3.4-5.0) Albumin/Globulin Ratio 1.0 (1.0-1.7) Current Medications: Meds: Current Medications Medications (Trade) Dose Ordered Sig/Maribel Route PRN Reason Start Time Stop Time Status Last Admin Dose Admin Senna/Docusate Sodium (Senna Plus) 1 tab DAILY PO 01/30/20 09:00 01/30/20 08:58 Polyethylene Glycol (miraLAX) 17 gm DAILY PO 01/30/20 09:00 01/30/20 08:58 I have reviewed the current psychotropics carefully including drug interactions. Risk benefit ratio favors no change other than as noted in my dictated progress note. Diagnosis: Problems: (1) Impulse control disorder, unspecified (2) Anxiety disorder, unspecified (3) Major neurocognitive disorder (4) Dementia, vascular, with depression (5) Dementia, vascular, with delusions (6) Dementia in Alzheimer's disease with depression (7) Dementia in Alzheimer's disease with delusions (8) Dementia of the Alzheimer's type with early onset with behavioral disturbance (9) Major depressive disorder, recurrent episode HUBERT PICKERING MD Jan 30, 2020 22:10
--- NOTE | 2020-01-30 23:55 | NUR ---
Pt located in the dayroom this evening. Pt was pleasant and less irritable from the previous evening. Compliant with crushed medications.
[2020-01-31 06:27] VITALS: BP 118/56
--- NOTE | 2020-01-31 07:49 | CONS ---
DATE OF CONSULTATION: 01/29/2020 NEURO CONSULT REFERRING PHYSICIAN: Dr. Gould. REASON FOR CONSULTATION: Evaluation for cortical atrophy and abnormal head CT scan. HISTORY OF PRESENT ILLNESS: This is a 64-year-old right-handed male who was admitted to a [facility] on 01/26/2020 on account of being severely depressed, anxious with decline in memory. The patient has been anxious, sleeping all day and slowing of his daily activities. On occasions, he voiced suicidal ideation being upset, not able to perform the work he used to do in the past. He denies headaches, visual disturbances, nausea, vomiting, chest pain, shortness of breath or palpitation. PAST MEDICAL HISTORY: Significant for Parkinson disease, chronic lymphatic leukemia, hyperlipidemia, obstructive sleep apnea using CPAP and difficulty walking with tendency to fall, possible history of seizure disorder. PAST SURGICAL HISTORY: Status post pacemaker placement. FAMILY HISTORY: Noncontributory. SOCIAL HISTORY: The patient lives with his at home. He just moved from [place] to [place]. He denies smoking, alcohol drinking, or illicit drug use. CURRENT HOME MEDICATIONS: Keppra 500 mg twice daily, Zoloft 100 mg daily, vitamin D, magnesium, multivitamins, Zoloft 100 mg daily, amantadine 100 mg twice daily, Namenda 10 mg twice daily. ALLERGIES: No known drug allergies. REVIEW OF SYSTEMS: A 12-point review of system was performed as mentioned above in history of present illness. PHYSICAL EXAMINATION: GENERAL: Obese male, not in acute distress. He weighs 103.2 kilos. VITAL SIGNS: Blood pressure 112/70, respiratory rate 18, pulse is 70 and regular, temperature 98.3, oxygen saturation 93% on room air. HEENT: Normocephalic, atraumatic, otherwise unremarkable. NECK: Supple. Negative for carotid bruit, lymphadenopathy or thyromegaly. LUNGS: Clear to A and P. CARDIOVASCULAR: Regular rhythm, normal S1, S2. ABDOMEN: Soft. Bowel sounds positive. EXTREMITIES: Negative for cyanosis, clubbing or pitting edema. NEUROLOGICAL EXAM: Mental Status: The patient is awake. The speech is slow with low volume due to underlying dementia. Further evaluation of his mental status is limited. CRANIAL NERVES: Visual cavazos appear to be intact. There is no nystagmus. Extraocular movements are intact. There is no facial motor or sensory deficit. Hearing appeared to be intact. The rest of the evaluation of cranial nerves is limited. MOTOR EXAM: No focal muscle bulk was seen. The tone is normal. The strength is 4/5 throughout. Sensory examination revealed normal pinprick, light touch senses throughout. Deep tendon reflexes were symmetric and hypoactive with absent Achilles responses. GAIT: The stance is unsteady. The patient uses a chair for ambulation. DIAGNOSTIC DATA: A head CT scan performed on 01/26/2020 revealed cortical atrophy resulted in ventriculomegaly. Mild chronic small vessel ischemic changes were also noted. LABORATORY DATA: From 01/26/2020 revealed white blood cells of 12.2, hemoglobin 14.2, hematocrit 42.9, platelet count 214,000. Chemistry from 01/26/2020 revealed A1c of 5.7, calcium 8.7, iron 62. Lipid profile revealed high cholesterol with high triglyceride and LDL. HDL is low as well as 36. Normal vitamin B12 and vitamin D and thyroid profile including TSH, T4 and T3. Urinalysis is negative for urinary tract infections. IMPRESSION: 1. Parkinson disease complicated with increased rigidity and intermittent resting tremor of the hands along with bradykinesia. 2. History of seizure disorder, but no further information about his seizure currently. 3. Multiple medical problems include chronic lymphocytic leukemia, hyperlipidemia, obstructive sleep apnea. 4. Abnormal head CT scan as described above and rule out possible early normal pressure hydrocephalus. RECOMMENDATIONS: 1. We will continue with current medical and psychiatric care. 2. Physical therapy as tolerated. 3. Neurosurgery consult for possible normal pressure hydrocephalus and need for ventricular shunt on an outpatient basis. However, the patient has had a history of dementia, tendency to fall and difficulty walking with unsteadiness along with urinary incontinence. M Amol TYLER MD DR: APRIL/bryn JOB#: [id number] / [id number]
--- NOTE | 2020-01-31 07:57 | PDOC ---
Exam Note: Xander Note: This note is a late entry for 01/30/2020 covers elements not covered in my initial note. Subjective: The patient was seen individually in the evening of 01/30/2020. Per Ariane SPRING, he slept 4-1/4 hours previous night. Previous night, he was extremely confused, psychotic, disrobing and has been placed in onesie. He has had no bowel movement but later nursing staff stated he did have bowel movement later in the day. He remains restless, trying to get out of his chair. He seems to have sense of humor. When asked what he would like to take his meds with he stated vodka. Review of Systems: Ambulation impaired in wheelchair. No CV, , pulmonary, eye, ENT system symptoms on review. Mental Status Exam: Oriented to himself. Insight and judgment, recent and remote memory, attention and concentration, fund of knowledge is poor consistent with his diagnoses. Laboratory Data: Reviewed. Impression: Major neurocognitive disorder, possible vascular with delusion, depression behavioral disturbance. Major depressive disorder. Anxiety disorder unspecified. Plan: Continue psychotropics form initial note. Await recommendations of Dr. Henderson, Neurology regarding normal pressure hydrocephalus. Make further adjustments as clinically indicated. Assessment: Vital Signs/I&O: Vital Signs Date Time Temp Pulse Resp B/P (MAP) Pulse Ox O2 Delivery O2 Flow Rate FiO2 01/31/20 06:27 98.3 37 16 118/56 (76) 98 Room Air I & O 01/30/20 01/30/20 01/31/20 15:00 23:00 07:00 Intake Total 480 ml 660 ml Balance 480 ml 660 ml Labs: Laboratory Tests Test 01/30/20 09:25 White Blood Count 13.4 x10^3/uL (4.0-11.0) H Red Blood Count 4.74 x10^6/uL (4.30-5.70) Hemoglobin 14.4 g/dL (13.0-17.5) Hematocrit 43.1 % (39.0-53.0) Mean Corpuscular Volume 91 fL (79-100) Mean Corpuscular Hemoglobin 30 pg (25-35) Mean Corpuscular Hemoglobin Concent 34 g/dL (31-37) Red Cell Distribution Width 14.8 % (11.5-14.5) H Platelet Count 212 x10^3/uL (140-400) Neutrophils (%) (Auto) 36 % (31-73) Lymphocytes (%) (Auto) 56 % (24-48) H Monocytes (%) (Auto) 5 % (0-9) Eosinophils (%) (Auto) 2 % (0-3) Basophils (%) (Auto) 0 % (0-3) Neutrophils # (Auto) 4.8 x10^3uL (1.8-7.7) Lymphocytes # (Auto) 7.5 x10^3/uL (1.0-4.8) H Monocytes # (Auto) 0.7 x10^3/uL (0.0-1.1) Eosinophils # (Auto) 0.3 x10^3/uL (0.0-0.7) Basophils # (Auto) 0.1 x10^3/uL (0.0-0.2) Segmented Neutrophils % 31 % (35-66) L Band Neutrophils % 2 % (0-9) Lymphocytes % 63 % (24-48) H Monocytes % 4 % (0-10) Platelet Estimate Decreased (ADEQUATE) Stomatocytes Present Sodium Level 142 mmol/L (136-145) Potassium Level 3.4 mmol/L (3.5-5.1) L Chloride Level 104 mmol/L (98-107) Carbon Dioxide Level 33 mmol/L (21-32) H Anion Gap 5 (6-14) L Blood Urea Nitrogen 22 mg/dL (8-26) Creatinine 1.3 mg/dL (0.7-1.3) Estimated GFR (Cockcroft-Gault) 55.6 BUN/Creatinine Ratio 17 (6-20) Glucose Level 117 mg/dL (70-99) H Calcium Level 8.7 mg/dL (8.5-10.1) Total Bilirubin 0.8 mg/dL (0.2-1.0) Aspartate Amino Transferase (AST) 26 U/L (15-37) Alanine Aminotransferase (ALT) 28 U/L (16-63) Alkaline Phosphatase 119 U/L (46-116) H Total Protein 7.3 g/dL (6.4-8.2) Albumin 3.6 g/dL (3.4-5.0) Albumin/Globulin Ratio 1.0 (1.0-1.7) Current Medications: Meds: Current Medications Medications (Trade) Dose Ordered Sig/Maribel Route PRN Reason Start Time Stop Time Status Last Admin Dose Admin Senna/Docusate Sodium (Senna Plus) 1 tab DAILY PO 01/30/20 09:00 01/30/20 08:58 Polyethylene Glycol (miraLAX) 17 gm DAILY PO 01/30/20 09:00 01/30/20 08:58 I have reviewed the current psychotropics carefully including drug interactions. Risk benefit ratio favors no change other than as noted in my dictated progress note. Diagnosis: Problems: (1) Major depressive disorder, recurrent episode (2) Anxiety disorder, unspecified (3) Major neurocognitive disorder (4) Dementia, vascular, with depression (5) Dementia, vascular, with delusions (6) Dementia in Alzheimer's disease with depression (7) Dementia in Alzheimer's disease with delusions (8) Dementia of the Alzheimer's type with early onset with behavioral disturbance HUBERT PICKERING MD Jan 31, 2020 07:57
[2020-01-31] MEDS: CALCIUM CARB/VIT D3 500/200 TABLET PO SCH (08:29)
[2020-01-31] MEDS: POLYETHYLENE GLYCOL 3350 17 GM PACKET. PO SCH (08:29)
[2020-01-31] MEDS: LACTOBACILLUS RHAMNOSUS GG 1 CAPSULE. PO SCH (08:29)
[2020-01-31] MEDS: SENNOSIDES/DOCUSATE 8.6/50MG TABLET. PO SCH (08:29)
[2020-01-31] MEDS: SERTRALINE 100 MG TABLET. PO SCH (08:30)
[2020-01-31] MEDS: MULTIVITAMIN with MINERAL TABLET. PO SCH (08:30)
[2020-01-31] MEDS: POTASSIUM CHLORIDE 20 MEQ TABLET.ER. PO SCH (08:30)
[2020-01-31] MEDS: MEMANTINE 10 MG TABLET. PO SCH ×2 (08:30→21:08)
[2020-01-31] MEDS: AMANTADINE HCL 100 MG CAPSULE PO SCH ×2 (08:30→21:09)
[2020-01-31] MEDS: levETIRAcetam 500 MG TABLET PO SCH ×2 (08:30→21:08)
--- NOTE | 2020-01-31 11:42 | NUR ---
Nursing note: Pt in dining room for morning meds and assessment. He was pleasant, med compliant, and cooperative. He has been up in the day room for most of the morning and has walked around the unit accompanied by staff. Will continue to monitor.
[2020-01-31 16:29] VITALS: BP 138/74
[2020-01-31] MEDS: OMEGA-3 FATTY ACIDS/FISH OIL 1,000 MG CAPSULE. PO SCH (21:08)
[2020-01-31] MEDS: MAGNESIUM OXIDE 400 MG TABLET PO SCH (21:09)
--- NOTE | 2020-01-31 22:13 | PDOC ---
Exam Note: Xander Note: Please also refer to the separate dictated note~for this date of service dictated separately.~Patient seen individually. Discussed the patient with Nursing staff reviewed the chart.~Reviewed interim history and current functioning. Reviewed vital signs,~Labs/ Radiology~and current medications noted below. Continue current treatment with the changes noted in the dictated addendum note Assessment: Vital Signs/I&O: Vital Signs Date Time Temp Pulse Resp B/P (MAP) Pulse Ox O2 Delivery O2 Flow Rate FiO2 01/31/20 16:29 97.8 68 18 138/74 (95) 98 01/31/20 06:27 Room Air I & O 01/30/20 01/30/20 01/31/20 15:00 23:00 07:00 Intake Total 480 ml 660 ml Balance 480 ml 660 ml Current Medications: Meds: Current Medications Medications (Trade) Dose Ordered Sig/Maribel Route PRN Reason Start Time Stop Time Status Last Admin Dose Admin Potassium Chloride (Klor-Con) 20 meq [id number] PO 01/31/20 08:00 01/31/20 08:30 I have reviewed the current psychotropics carefully including drug interactions. Risk benefit ratio favors no change other than as noted in my dictated progress note. Diagnosis: Problems: (1) Impulse control disorder, unspecified (2) Anxiety disorder, unspecified (3) Major neurocognitive disorder (4) Dementia, vascular, with depression (5) Dementia, vascular, with delusions (6) Dementia in Alzheimer's disease with depression (7) Dementia of the Alzheimer's type with early onset with behavioral disturbance (8) Major depressive disorder, recurrent episode (9) Dementia in Alzheimer's disease with delusions HUBERT PICKERING MD Jan 31, 2020 22:13
--- NOTE | 2020-01-31 23:05 | NUR ---
Patient in room for assessment. Calm and compliant with medication administration and assessment. Took medications crushed in pudding without difficulty. Patient interactive and pleasant. Will continue to monitor.
[2020-02-01] MEDS: traZODone 50 MG TABLET. PO PRN ×2 (01:23→19:57)
[2020-02-01 06:11] VITALS: BP 135/93
[2020-02-01] MEDS: POLYETHYLENE GLYCOL 3350 17 GM PACKET. PO SCH (08:45)
[2020-02-01] MEDS: POTASSIUM CHLORIDE 20 MEQ TABLET.ER. PO SCH (08:52)
[2020-02-01] MEDS: LACTOBACILLUS RHAMNOSUS GG 1 CAPSULE. PO SCH (08:52)
[2020-02-01] MEDS: AMANTADINE HCL 100 MG CAPSULE PO SCH ×2 (08:53→19:55)
[2020-02-01] MEDS: MULTIVITAMIN with MINERAL TABLET. PO SCH (08:53)
[2020-02-01] MEDS: SENNOSIDES/DOCUSATE 8.6/50MG TABLET. PO SCH (08:53)
[2020-02-01] MEDS: SERTRALINE 100 MG TABLET. PO SCH (08:53)
[2020-02-01] MEDS: levETIRAcetam 500 MG TABLET PO SCH ×2 (08:53→19:56)
[2020-02-01] MEDS: CALCIUM CARB/VIT D3 500/200 TABLET PO SCH (08:53)
[2020-02-01] MEDS: MEMANTINE 10 MG TABLET. PO SCH ×2 (08:53→19:56)
--- NOTE | 2020-02-01 10:33 | NUR ---
Pt is calm, confused, cooperative, and compliant. No agitation, no aggression, no hallucinations. No delusions. He is compliant with his medication and assessment.
--- NOTE | 2020-02-01 12:30 | NUR ---
During lunch pt was sitting at a table and eating his lunch. MEDICAL DATA ENTRY CLERK's reported pt suddenly pushed his tray forward stating "I don't know why you guys are making me do this!" MEDICAL DATA ENTRY CLERK asked making you do what? and reassured pt that he was at lunch and in a safe place. Pt stated "shut up!" He then attempted to pull the tray off the table, he slapped table and then threw the tray off of the table and onto the floor. Staff escorted pt to the [facility] for deescalation. While in the hallway pt continued to pace and door check and stated he wanted to leave and demanded to call his . He would not take PRN zyprexa zydis after several attempts from the nurse. Pt is currently sitting in a chair in the hallway.
--- NOTE | 2020-02-01 12:35 | NUR ---
BERHANE received a call from pt , Ashlyn, who wanted to follow up on her phone call from Dr. Henderson. It was found that pt does have water on his brain and may need a shunt to see if that would help lessen pt behaviors. Pt wanted to offer to Dr. Henderson the records that she has as she reports that she has every scan and every report pt has had. She is aware that Dr. Henderson will call the neurologist but wanted to offer up what she has if he cannot get in touch with the neurologist Dr. Marie. During the phone call, it was reported by staff that pt threw his tray and was going to be placed in the hallway for a cool down period. Pt wondered if this was due to some frustration no pt end as he does have trouble with food sometimes, especially when he can't grasp something or needs help. BERHANE informed pt , that per staff, pt is on finger foods and appeared to have no stimulus. SW will further investigate this and update pt . Pt will participate in treatment team and asked to be called first as she has a 930 appointment and does not wish to miss the report. Pt asked how long the meeting would be and BERHANE explained that it is typically 5 minutes per pt. Ashlyn stated "oh good. That'll be perfect".
[2020-02-01 16:18] VITALS: BP 126/85
[2020-02-01] MEDS: OMEGA-3 FATTY ACIDS/FISH OIL 1,000 MG CAPSULE. PO SCH (19:56)
[2020-02-01] MEDS: MAGNESIUM OXIDE 400 MG TABLET PO SCH (19:56)
--- NOTE | 2020-02-01 22:14 | PDOC ---
Exam Note: Xander Note: Please also refer to the separate dictated note~for this date of service dictated separately.~Patient seen individually. Discussed the patient with Nursing staff reviewed the chart.~Reviewed interim history and current functioning. Reviewed vital signs,~Labs/ Radiology~and current medications noted below. Continue current treatment with the changes noted in the dictated addendum note Assessment: Vital Signs/I&O: Vital Signs Date Time Temp Pulse Resp B/P (MAP) Pulse Ox O2 Delivery O2 Flow Rate FiO2 02/01/20 16:18 98.3 81 20 126/85 (99) 95 Room Air I & O 01/31/20 01/31/20 02/01/20 15:00 23:00 07:00 Intake Total 600 ml 360 ml Balance 600 ml 360 ml Current Medications: I have reviewed the current psychotropics carefully including drug interactions. Risk benefit ratio favors no change other than as noted in my dictated progress note. Diagnosis: Problems: (1) Impulse control disorder, unspecified (2) Anxiety disorder, unspecified (3) Major neurocognitive disorder (4) Dementia, vascular, with depression (5) Dementia, vascular, with delusions (6) Dementia in Alzheimer's disease with depression (7) Dementia in Alzheimer's disease with delusions (8) Dementia of the Alzheimer's type with early onset with behavioral disturbance (9) Major depressive disorder, recurrent episode HUBERT PICKERING MD Feb 01, 2020 22:14
--- NOTE | 2020-02-01 22:54 | NUR ---
Pt sitting calmly in the dayroom this evening. Compliant with crushed medications. No agitation or aggression.
[2020-02-02] MEDS: traZODone 50 MG TABLET. PO PRN (00:22)
[2020-02-02 05:08] VITALS: BP 146/88
--- NOTE | 2020-02-02 07:49 | PDOC ---
Exam Note: Xander Note: This note is a late entry for 01/31/2020 covers elements not covered in my initial note. Subjective: The patient was seen individually in the evening of 01/31/2020. Per Rosy SPRING, he slept 4-1/4 hours previous night. He is somewhat drowsy but calmer, able to ambulate better on his own. He was trying to run in the hallway, showing me how flexible he was but nursing staff intervened. Review of Systems: Ambulation impaired in wheelchair. No CV, , pulmonary, eye, ENT system symptoms on review. Mental Status Exam: Oriented to himself. Insight and judgment, recent and remote memory, attention and concentration, fund of knowledge is poor consistent with his diagnoses. Laboratory Data: Reviewed. Impression: Major neurocognitive disorder, possible vascular with delusion, depression behavioral disturbance. Major depressive disorder. Anxiety disorder unspecified. Plan: Continue psychotropics form initial note. The patient has been more calmer and pleasant. We will adjust further as clinically indicated. Assessment: Vital Signs/I&O: Vital Signs Date Time Temp Pulse Resp B/P (MAP) Pulse Ox O2 Delivery O2 Flow Rate FiO2 02/02/20 05:08 97.5 84 20 146/88 (107) 97 02/01/20 16:18 Room Air I & O 02/01/20 02/01/20 02/02/20 15:00 23:00 07:00 Intake Total 480 ml 600 ml Balance 480 ml 600 ml Current Medications: I have reviewed the current psychotropics carefully including drug interactions. Risk benefit ratio favors no change other than as noted in my dictated progress note. Diagnosis: Problems: (1) Impulse control disorder, unspecified (2) Anxiety disorder, unspecified (3) Major neurocognitive disorder (4) Dementia, vascular, with depression (5) Dementia, vascular, with delusions (6) Dementia in Alzheimer's disease with depression (7) Dementia in Alzheimer's disease with delusions (8) Dementia of the Alzheimer's type with early onset with behavioral disturbance (9) Major depressive disorder, recurrent episode HUBERT PICKERING MD Feb 02, 2020 07:49
--- NOTE | 2020-02-02 08:31 | PDOC ---
Exam Note: Xander Note: This note is a late entry for 02/01/2020 covers elements not covered in my initial note. Subjective: The patient was seen individually in the evening of 02/01/2020. Per Ariane SPRING, he slept 3-1/4 hours previous night. He did well previous night. Earlier in the day today he pushed his food tray down on the floor, refused Zyprexa but then a short while later forgot what he had done. Review of Systems: Ambulation impaired in wheelchair. No CV, , pulmonary, eye, ENT system symptoms on review. Mental Status Exam: Oriented to himself. Insight and judgment, recent and remote memory, attention and concentration, fund of knowledge is poor consistent with his diagnoses. Laboratory Data: Reviewed. Impression: Major neurocognitive disorder, possible vascular with delusion, depression behavioral disturbance. Major depressive disorder. Anxiety disorder unspecified. Plan: Continue psychotropics form initial note. Increase the patients Zoloft to 125 mg a day and consider augmentation for this. Maintain rest unchanged. Assessment: Vital Signs/I&O: Vital Signs Date Time Temp Pulse Resp B/P (MAP) Pulse Ox O2 Delivery O2 Flow Rate FiO2 02/02/20 05:08 97.5 84 20 146/88 (107) 97 02/01/20 16:18 Room Air I & O 02/01/20 02/01/20 02/02/20 15:00 23:00 07:00 Intake Total 480 ml 600 ml Balance 480 ml 600 ml Current Medications: I have reviewed the current psychotropics carefully including drug interactions. Risk benefit ratio favors no change other than as noted in my dictated progress note. Diagnosis: Problems: (1) Impulse control disorder, unspecified (2) Anxiety disorder, unspecified (3) Major neurocognitive disorder (4) Dementia, vascular, with depression (5) Dementia, vascular, with delusions (6) Dementia in Alzheimer's disease with depression (7) Dementia in Alzheimer's disease with delusions (8) Dementia of the Alzheimer's type with early onset with behavioral disturbance (9) Major depressive disorder, recurrent episode HUBERT PICKERING MD Feb 02, 2020 08:31
[2020-02-02] MEDS: POLYETHYLENE GLYCOL 3350 17 GM PACKET. PO SCH (08:43)
[2020-02-02] MEDS: POTASSIUM CHLORIDE 20 MEQ TABLET.ER. PO SCH (08:43)
[2020-02-02] MEDS: MEMANTINE 10 MG TABLET. PO SCH ×2 (08:44→20:22)
[2020-02-02] MEDS: SENNOSIDES/DOCUSATE 8.6/50MG TABLET. PO SCH (08:44)
[2020-02-02] MEDS: levETIRAcetam 500 MG TABLET PO SCH ×2 (08:44→20:22)
[2020-02-02] MEDS: MULTIVITAMIN with MINERAL TABLET. PO SCH (08:44)
[2020-02-02] MEDS: LACTOBACILLUS RHAMNOSUS GG 1 CAPSULE. PO SCH (08:44)
[2020-02-02] MEDS: SERTRALINE 100 MG TABLET. PO SCH (08:44)
[2020-02-02] MEDS: AMANTADINE HCL 100 MG CAPSULE PO SCH ×2 (08:45→20:21)
[2020-02-02] MEDS: CALCIUM CARB/VIT D3 500/200 TABLET PO SCH (08:45)
--- NOTE | 2020-02-02 15:27 | NUR ---
Patient in room in bed with eyes closed during shift change. Pleasant and cooperative with medications and assessment. Medications crushed in pudding and taken without difficulty. No behaviors noted at this time. called this morning for an update. Will continue to monitor.
--- NOTE | 2020-02-02 16:09 | TX PLAN ---
Interdisciplinary Tx Plan Admission Information Jan 26, 2020 at 14:02 Legal Status (on Admission): Voluntary DPOA/Guardian Name: Ashlyn Cody Contact Verified Code Status: DNR Allergies: Coded Allergies: No Known Drug Allergies (Unverified , 01/26/20) Diagnoses Primary Diagnosis: Major Neurocognitive D/O, Vascular with depression and delusions, MDD Reasons for Admission: Agitated, Depressed, Sig. Change Sleep, Anxiety/Panic, Suicidal ideation, Confusion/Disoriented, Poor impulse control Problem in Patient's Words: Continued decline in cognition and not processing things very well. Additional Admission Comments: According to the intake, pt is lethargic, appears anxious, refused medications at times, up all night sleeping during the day, no will to live or thrive, SI with no plan, depressed confused and declining in cognition. Problems Active Problems: Anxious Agitated attempts to refuse medications Demanding to leave Inactive Problems: attending group activities Pt Strengths/Limitations Ability for [place]: Poor Cognitive Functioning/Ability: Fair Communication Skills/Ability: Fair Financial Resources: Fair Insight/Judgement: Poor Intellectual Ability: Poor Physical Health: Poor Social Skills: Fair Stability in Family: Good Stability in School/Work: Poor Verbal Skills: Fair Discharge Criteria Discharge Criteria: Able meet basic life need, Adequate arrangements @DC, Verbal commit aftercare, Improved behavior, Improved mood/thought Preliminary Discharge Plan Preliminary DC Plan: Current Living Arrange. Special Precautions Fall Risk: Low Initial D/C Plan Pt will plan to return home with his and continue services through [facility]. Identified Discharge Needs: Continued mental health services Currently Utilized Resources Currently Utilized Resources/P: Primary Care Physician Neurologist Psychologist Psychiatrist Identified Problems/Hx/Goals Objectives/Short-Term Goals Short Term Goals: Dec. Aggression, Dec. Anxiety/Panic, Dec. Outbursts, Dec. Symp. Depression, Medication Stabilization, No Suicidal/Onofre. ideation, Promote Coping Skill Short Term Goals in Patient's: N/A Interventions/Frequency Staff Interventions/Frequency&: Psychiatrist to assess pt at least 3x per week. Social Work to assess pt at least 2x per week. Nursing to assess behavior, medications and complete 15 minute checks daily Encourage group participation in activities or 1:1 engagement based of Activity Dept. assessment. 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 Education: Pt graduated from high school (completion of the 12th grade). Community Follow-up Will continue to follow up with all previous care providers Community Provider/Family Inpu: I want him home, but he needs to be better behaved and under control. 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
[2020-02-02 16:14] VITALS: BP 132/71
[2020-02-02] MEDS: MAGNESIUM OXIDE 400 MG TABLET PO SCH (20:22)
[2020-02-02] MEDS: OMEGA-3 FATTY ACIDS/FISH OIL 1,000 MG CAPSULE. PO SCH (20:22)
--- NOTE | 2020-02-02 23:05 | PDOC ---
Exam Note: Xander Note: Please also refer to the separate dictated note~for this date of service dictated separately.~Patient seen individually. Discussed the patient with Nursing staff reviewed the chart.~Reviewed interim history and current functioning. Reviewed vital signs,~Labs/ Radiology~and current medications noted below. Continue current treatment with the changes noted in the dictated addendum note Assessment: Vital Signs/I&O: Vital Signs Date Time Temp Pulse Resp B/P (MAP) Pulse Ox O2 Delivery O2 Flow Rate FiO2 02/02/20 16:14 98.2 74 18 132/71 (91) 98 02/01/20 16:18 Room Air I & O 02/01/20 02/01/20 02/02/20 15:00 23:00 07:00 Intake Total 480 ml 600 ml Balance 480 ml 600 ml Current Medications: Meds: Current Medications Medications (Trade) Dose Ordered Sig/Maribel Route PRN Reason Start Time Stop Time Status Last Admin Dose Admin Sertraline HCl (Zoloft) 125 mg DAILY PO 02/02/20 09:00 02/02/20 08:44 I have reviewed the current psychotropics carefully including drug interactions. Risk benefit ratio favors no change other than as noted in my dictated progress note. Diagnosis: Problems: (1) Impulse control disorder, unspecified (2) Anxiety disorder, unspecified (3) Major neurocognitive disorder (4) Dementia, vascular, with depression (5) Dementia, vascular, with delusions (6) Dementia in Alzheimer's disease with depression (7) Dementia in Alzheimer's disease with delusions (8) Dementia of the Alzheimer's type with early onset with behavioral disturbance (9) Major depressive disorder, recurrent episode HUBERT PICKERING MD Feb 02, 2020 23:05
[2020-02-03] MEDS: traZODone 50 MG TABLET. PO PRN ×2 (00:17→01:49)
--- NOTE | 2020-02-03 00:19 | NUR ---
PRN trazodone given. Pt has been restless in bed and not sleeping well
--- NOTE | 2020-02-03 01:26 | NUR ---
Last evening pt was social in [place] for awhile then spent time in his room. Meds were taken crushed in pudding without difficulty. He has been cooperative with cares and had no behaviors tonight.
[2020-02-03 05:22] VITALS: BP 103/61
[2020-02-03] MEDS: POTASSIUM CHLORIDE 20 MEQ TABLET.ER. PO SCH (08:00)
[2020-02-03] MEDS: MULTIVITAMIN with MINERAL TABLET. PO SCH (10:44)
[2020-02-03] MEDS: MEMANTINE 10 MG TABLET. PO SCH ×2 (10:44→20:09)
[2020-02-03] MEDS: AMANTADINE HCL 100 MG CAPSULE PO SCH ×2 (10:44→20:08)
[2020-02-03] MEDS: LACTOBACILLUS RHAMNOSUS GG 1 CAPSULE. PO SCH (10:44)
[2020-02-03] MEDS: levETIRAcetam 500 MG TABLET PO SCH ×2 (10:44→20:08)
[2020-02-03] MEDS: POLYETHYLENE GLYCOL 3350 17 GM PACKET. PO SCH (10:44)
[2020-02-03] MEDS: CALCIUM CARB/VIT D3 500/200 TABLET PO SCH (10:44)
[2020-02-03] MEDS: SENNOSIDES/DOCUSATE 8.6/50MG TABLET. PO SCH (10:44)
[2020-02-03] MEDS: SERTRALINE 100 MG TABLET. PO SCH (10:45)
--- NOTE | 2020-02-03 11:06 | NUR ---
Nursing note: Pt was allowed to sleep in this morning since he only had 2.75 sleep hours recorded. Pt awoke around 1045 and was brought to the day room. He was compliant with meds crushed in pudding and was given his breakfast tray. He had no complaints this morning. Will continue to monitor.
--- NOTE | 2020-02-03 11:07 | NUR ---
WEEKLY ACTIVITY THERAPY NOTE Date of Admission: 01/26/20 Date of AT Assessment:01/28/2020 Precipitating behaviors that initiated intake and admission: It was reported that patient has been lethargic and anxious. He has been refusing medications at times, staying up all night and sleeping all day. He has no will to live or thrive. According to his he is suicidal but has no plan. He is depressed and confused and aware of his declining cognition. Goal aimed:increase time management and motivation skills Initial Goal:Pt will participate in at least one individual or group Activity Therapy session per week. Weekly progress towards goal: achieved Group participation level: 3 min, 1 mod Weekly highlights: raised hand when things applied to him on Friday afternoon Behaviors observed: frustrated with self, know what his body should be doing, sleeping during group, more calm and pleasant in groups as the week has progressed, does not speak much in groups Plan: no change to goal Beneficial adaptations: quiet groups, allow extra time to process
[2020-02-03 15:40] VITALS: BP 123/82
--- NOTE | 2020-02-03 18:25 | TX PLAN ---
Interdisciplinary Tx Plan Admission Information Jan 26, 2020 at 14:02 Legal Status (on Admission): Voluntary DPOA/Guardian Name: Ashlyn Cody Contact Verified Code Status: DNR Allergies: Coded Allergies: No Known Drug Allergies (Unverified , 01/26/20) Diagnoses Primary Diagnosis: Major Neurocognitive D/O, Vascular with depression and delusions, MDD Reasons for Admission: Agitated, Depressed, Sig. Change Sleep, Anxiety/Panic, Suicidal ideation, Confusion/Disoriented, Poor impulse control Problem in Patient's Words: Continued decline in cognition and not processing things very well. Additional Admission Comments: According to the intake, pt is lethargic, appears anxious, refused medications at times, up all night sleeping during the day, no will to live or thrive, SI with no plan, depressed confused and declining in cognition. Problems Active Problems: Anxious Agitated attempts to refuse medications Demanding to leave Inactive Problems: attending group activities Pt Strengths/Limitations Ability for [place]: Poor Cognitive Functioning/Ability: Fair Communication Skills/Ability: Fair Financial Resources: Fair Insight/Judgement: Poor Intellectual Ability: Poor Physical Health: Poor Social Skills: Fair Stability in Family: Good Stability in School/Work: Poor Verbal Skills: Fair Discharge Criteria Discharge Criteria: Able meet basic life need, Adequate arrangements @DC, Verbal commit aftercare, Improved behavior, Improved mood/thought Preliminary Discharge Plan Preliminary DC Plan: Current Living Arrange. Special Precautions Fall Risk: Low Initial D/C Plan Pt will plan to return home with his and continue services through [facility]. Identified Discharge Needs: Continued mental health services Currently Utilized Resources Currently Utilized Resources/P: Primary Care Physician Neurologist Psychologist Psychiatrist Identified Problems/Hx/Goals Objectives/Short-Term Goals Short Term Goals: Dec. Aggression, Dec. Anxiety/Panic, Dec. Outbursts, Dec. Symp. Depression, Medication Stabilization, No Suicidal/Onofre. ideation, Promote Coping Skill Short Term Goals in Patient's: N/A Interventions/Frequency Staff Interventions/Frequency&: Psychiatrist to assess pt at least 3x per week. Social Work to assess pt at least 2x per week. Nursing to assess behavior, medications and complete 15 minute checks daily Encourage group participation in activities or 1:1 engagement based of Activity Dept. assessment. 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 Education: Pt graduated from high school (completion of the 12th grade). Community Follow-up Will continue to follow up with all previous care providers Community Provider/Family Inpu: I want him home, but he needs to be better behaved and under control. 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 Pt is eating between 50-75% of meals and sleeping on average 3.5 hours a night. Pt is mostly calm and compliant with cares/staff direction. Pt can get agitated from time to time but is redirectable. Pt has of late been compliant with medications; however, still wants to discharge home [place]. Pt is currently on Keppra, Namenda, Zoloft and will change pt Trazadone to Melatonin 3mg q HS to see if that will help pt sleep better than the previous Trazadone order. Pt will look for a neurosurgeon to inquire more about pt possibly having a shunt placed to aid in the hydrocephalous. SW will continue to work with pt and his in making all p lans for pt to return home and continued services through his providers at the [facility] in [place], [place]. NATHAN BATES Feb 03, 2020 18:25
[2020-02-03] MEDS: OMEGA-3 FATTY ACIDS/FISH OIL 1,000 MG CAPSULE. PO SCH (20:08)
[2020-02-03] MEDS: MELATONIN 3 MG TABLET PO SCH (20:08)
[2020-02-03] MEDS: MAGNESIUM OXIDE 400 MG TABLET PO SCH (20:08)
--- NOTE | 2020-02-03 22:17 | PDOC ---
Exam Note: Xander Note: Please also refer to the separate dictated note~for this date of service dictated separately.~Patient seen individually. Discussed the patient with Nursing staff reviewed the chart.~Reviewed interim history and current functioning. Reviewed vital signs,~Labs/ Radiology~and current medications noted below. Continue current treatment with the changes noted in the dictated addendum note Assessment: Vital Signs/I&O: Vital Signs Date Time Temp Pulse Resp B/P (MAP) Pulse Ox O2 Delivery O2 Flow Rate FiO2 02/03/20 15:40 97.6 71 18 123/82 (96) 96 02/01/20 16:18 Room Air I & O 02/02/20 02/02/20 02/03/20 15:00 23:00 07:00 Intake Total 480 ml 480 ml 120 ml Balance 480 ml 480 ml 120 ml Current Medications: Meds: Current Medications Medications (Trade) Dose Ordered Sig/Maribel Route PRN Reason Start Time Stop Time Status Last Admin Dose Admin Melatonin (Melatonin) 3 mg HS PO 02/03/20 21:00 02/03/20 20:08 I have reviewed the current psychotropics carefully including drug interactions. Risk benefit ratio favors no change other than as noted in my dictated progress note. Diagnosis: Problems: (1) Impulse control disorder, unspecified (2) Anxiety disorder, unspecified (3) Major neurocognitive disorder (4) Dementia, vascular, with depression (5) Dementia, vascular, with delusions (6) Dementia in Alzheimer's disease with depression (7) Dementia in Alzheimer's disease with delusions (8) Dementia of the Alzheimer's type with early onset with behavioral disturbance (9) Major depressive disorder, recurrent episode HUBERT PICKERING MD Feb 03, 2020 22:17
--- NOTE | 2020-02-04 03:50 | NUR ---
Last evening pt was in day room and was very alert and social for awhile, he talked about his family and work history. He took his meds with some prompting. Pt was cooperative with HS cares, since going to bed he has remained awake in his bed restless and fidgeting. CPAP was placed on pt but it is missing the water tub seal so it is not able to be used. 1970's folk music playing on tablet in his room. No PRN meds for insomnia available tonight.
[2020-02-04 06:27] VITALS: BP 119/73
[2020-02-04 06:45] LABS: BASO # 0.1 x10^3/uL (0.0-0.2); BASO % 1 % (0-3); EOS # 0.2 x10^3/uL (0.0-0.7); EOS % 2 % (0-3); HEMATOCRIT 43.2 % (39.0-53.0); HEMOGLOBIN 14.6 g/dL (13.0-17.5); LYMPH # 7.8 x10^3/uL (1.0-4.8); LYMPH % 55 % (24-48); MEAN CORPUSCULAR HEMOGLOBIN 31 pg (25-35); MEAN CORPUSCULAR HGB CONC 34 g/dL (31-37); MEAN CORPUSCULAR VOLUME 90 fL (79-100); MONO # 0.7 x10^3/uL (0.0-1.1); MONO % 5 % (0-9); NEUT # 5.3 x10^3uL (1.8-7.7); NEUT % 37 % (31-73); PLATELET COUNT 234 x10^3/uL (140-400); RED BLOOD COUNT 4.79 x10^6/uL (4.30-5.70); RED CELL DISTRIBUTION WIDTH 14.8 % (11.5-14.5); WHITE BLOOD COUNT 14.2 x10^3/uL (4.0-11.0)
[2020-02-04 07:06] LABS: ALBUMIN 3.7 g/dL (3.4-5.0); CALCIUM 8.8 mg/dL (8.5-10.1); CREATININE 1.3 mg/dL (0.7-1.3); GFR 55.6; POTASSIUM 3.7 mmol/L (3.5-5.1); TOTAL BILIRUBIN 0.6 mg/dL (0.2-1.0); TOTAL PROTEIN 7.5 g/dL (6.4-8.2)
--- NOTE | 2020-02-04 07:28 | PDOC ---
Exam Note: Xander Note: This note is a late entry for 02/02/2020 covers elements not covered in my initial note. Subjective: The patient was seen individually in the evening of 02/02/2020. Per Ariana SPRING, he slept 5-1/4 hours previous night. He has had a better day on 02/01. He is less agitated, tired in the morning. He remains confused. Review of Systems: Gait unsteady. Ambulation impaired in wheelchair. No CV, , pulmonary, eye, ENT system symptoms on review. Mental Status Exam: Oriented to himself. Insight and judgment, recent and remote memory, attention and concentration, fund of knowledge is poor consistent with his diagnoses. Laboratory Data: Reviewed. Impression: Major neurocognitive disorder, possible vascular with delusion, depression behavioral disturbance. Major depressive disorder. Anxiety disorder unspecified. Plan: Continue psychotropics form initial note. Assessment: Vital Signs/I&O: Vital Signs Date Time Temp Pulse Resp B/P (MAP) Pulse Ox O2 Delivery O2 Flow Rate FiO2 02/04/20 06:27 97.5 74 20 119/73 (88) 97 02/01/20 16:18 Room Air I & O 02/03/20 02/03/20 02/04/20 15:00 23:00 07:00 Intake Total 240 ml 480 ml Balance 240 ml 480 ml Labs: Laboratory Tests Test 02/04/20 06:20 White Blood Count 14.2 x10^3/uL (4.0-11.0) H Red Blood Count 4.79 x10^6/uL (4.30-5.70) Hemoglobin 14.6 g/dL (13.0-17.5) Hematocrit 43.2 % (39.0-53.0) Mean Corpuscular Volume 90 fL (79-100) Mean Corpuscular Hemoglobin 31 pg (25-35) Mean Corpuscular Hemoglobin Concent 34 g/dL (31-37) Red Cell Distribution Width 14.8 % (11.5-14.5) H Platelet Count 234 x10^3/uL (140-400) Neutrophils (%) (Auto) 37 % (31-73) Lymphocytes (%) (Auto) 55 % (24-48) H Monocytes (%) (Auto) 5 % (0-9) Eosinophils (%) (Auto) 2 % (0-3) Basophils (%) (Auto) 1 % (0-3) Neutrophils # (Auto) 5.3 x10^3uL (1.8-7.7) Lymphocytes # (Auto) 7.8 x10^3/uL (1.0-4.8) H Monocytes # (Auto) 0.7 x10^3/uL (0.0-1.1) Eosinophils # (Auto) 0.2 x10^3/uL (0.0-0.7) Basophils # (Auto) 0.1 x10^3/uL (0.0-0.2) Sodium Level 141 mmol/L (136-145) Potassium Level 3.7 mmol/L (3.5-5.1) Chloride Level 105 mmol/L (98-107) Carbon Dioxide Level 28 mmol/L (21-32) Anion Gap 8 (6-14) Blood Urea Nitrogen 27 mg/dL (8-26) H Creatinine 1.3 mg/dL (0.7-1.3) Estimated GFR (Cockcroft-Gault) 55.6 BUN/Creatinine Ratio 21 (6-20) H Glucose Level 112 mg/dL (70-99) H Calcium Level 8.8 mg/dL (8.5-10.1) Total Bilirubin 0.6 mg/dL (0.2-1.0) Aspartate Amino Transferase (AST) 21 U/L (15-37) Alanine Aminotransferase (ALT) 27 U/L (16-63) Alkaline Phosphatase 118 U/L (46-116) H Total Protein 7.5 g/dL (6.4-8.2) Albumin 3.7 g/dL (3.4-5.0) Albumin/Globulin Ratio 1.0 (1.0-1.7) Current Medications: Meds: Current Medications Medications (Trade) Dose Ordered Sig/Maribel Route PRN Reason Start Time Stop Time Status Last Admin Dose Admin Melatonin (Melatonin) 3 mg HS PO 02/03/20 21:00 02/03/20 20:08 I have reviewed the current psychotropics carefully including drug interactions. Risk benefit ratio favors no change other than as noted in my dictated progress note. Diagnosis: Problems: (1) Impulse control disorder, unspecified (2) Anxiety disorder, unspecified (3) Major neurocognitive disorder (4) Dementia, vascular, with depression (5) Dementia, vascular, with delusions (6) Dementia in Alzheimer's disease with depression (7) Dementia in Alzheimer's disease with delusions (8) Dementia of the Alzheimer's type with early onset with behavioral disturbance (9) Major depressive disorder, recurrent episode HUBERT PICKERING MD Feb 04, 2020 07:28
--- NOTE | 2020-02-04 07:51 | PDOC ---
Exam Note: Xander Note: This note is a late entry for 02/03/2020 covers elements not covered in my initial note. Subjective: The patient was seen individually in the morning of 02/03/2020 with treatment team meeting with Ryder (social service staff), [place] [facility] staff, Ariane SPRING. The patients Ashlyn joined the treatment team meeting. He slept 3-1/2 hours previous night. He had one incident of getting agitated at lunch time and rest of the time he was appropriate. gave a very detailed history. He started having spatial problems about 6 years back worsening for the past 2-1/2 years. At times calls the staff incompetent, has expressive aphasia. indicated he did have a PET scan in the past. When they were living in [place] he was diagnosed with early onset of Alzheimers. He did have a pacemaker placed, somewhat sleepy and at home remains on CPAP machine. We discussed the question of normal pressure hydrocephalus and having a neurosurgical consult as an outpatient and will arrange this. He is more disorganized, cannot seem to find his bathroom. Review of Systems: Ambulation impaired in wheelchair. No CV, , pulmonary, eye, ENT system symptoms on review. Mental Status Exam: Oriented to himself. Insight and judgment, recent and remote memory, attention and concentration, fund of knowledge is poor consistent with his diagnoses. Laboratory Data: Reviewed. Impression: Major neurocognitive disorder, possible vascular with delusion, depression behavioral disturbance. Major depressive disorder. Anxiety disorder unspecified. Plan: The patients wonders whether some of his morning sedation is due to trazodone. He did not respond well to all standard medications. We will change this to melatonin 3 mg h.s. Consider Remeron instead later. Maintain Keppra for seizures, Namenda, Zoloft 125 mg day, Zyprexa p.r.n. Check UA for UTI, CBC, and chemistry profile. Adjust further as clinically indicated. Assessment: Vital Signs/I&O: Vital Signs Date Time Temp Pulse Resp B/P (MAP) Pulse Ox O2 Delivery O2 Flow Rate FiO2 02/04/20 06:27 97.5 74 20 119/73 (88) 97 02/01/20 16:18 Room Air I & O 02/03/20 02/03/20 02/04/20 15:00 23:00 07:00 Intake Total 240 ml 480 ml Balance 240 ml 480 ml Labs: Laboratory Tests Test 02/04/20 06:20 White Blood Count 14.2 x10^3/uL (4.0-11.0) H Red Blood Count 4.79 x10^6/uL (4.30-5.70) Hemoglobin 14.6 g/dL (13.0-17.5) Hematocrit 43.2 % (39.0-53.0) Mean Corpuscular Volume 90 fL (79-100) Mean Corpuscular Hemoglobin 31 pg (25-35) Mean Corpuscular Hemoglobin Concent 34 g/dL (31-37) Red Cell Distribution Width 14.8 % (11.5-14.5) H Platelet Count 234 x10^3/uL (140-400) Neutrophils (%) (Auto) 37 % (31-73) Lymphocytes (%) (Auto) 55 % (24-48) H Monocytes (%) (Auto) 5 % (0-9) Eosinophils (%) (Auto) 2 % (0-3) Basophils (%) (Auto) 1 % (0-3) Neutrophils # (Auto) 5.3 x10^3uL (1.8-7.7) Lymphocytes # (Auto) 7.8 x10^3/uL (1.0-4.8) H Monocytes # (Auto) 0.7 x10^3/uL (0.0-1.1) Eosinophils # (Auto) 0.2 x10^3/uL (0.0-0.7) Basophils # (Auto) 0.1 x10^3/uL (0.0-0.2) Sodium Level 141 mmol/L (136-145) Potassium Level 3.7 mmol/L (3.5-5.1) Chloride Level 105 mmol/L (98-107) Carbon Dioxide Level 28 mmol/L (21-32) Anion Gap 8 (6-14) Blood Urea Nitrogen 27 mg/dL (8-26) H Creatinine 1.3 mg/dL (0.7-1.3) Estimated GFR (Cockcroft-Gault) 55.6 BUN/Creatinine Ratio 21 (6-20) H Glucose Level 112 mg/dL (70-99) H Calcium Level 8.8 mg/dL (8.5-10.1) Total Bilirubin 0.6 mg/dL (0.2-1.0) Aspartate Amino Transferase (AST) 21 U/L (15-37) Alanine Aminotransferase (ALT) 27 U/L (16-63) Alkaline Phosphatase 118 U/L (46-116) H Total Protein 7.5 g/dL (6.4-8.2) Albumin 3.7 g/dL (3.4-5.0) Albumin/Globulin Ratio 1.0 (1.0-1.7) Current Medications: Meds: Current Medications Medications (Trade) Dose Ordered Sig/Maribel Route PRN Reason Start Time Stop Time Status Last Admin Dose Admin Melatonin (Melatonin) 3 mg HS PO 02/03/20 21:00 02/03/20 20:08 I have reviewed the current psychotropics carefully including drug interactions. Risk benefit ratio favors no change other than as noted in my dictated progress note. Diagnosis: Problems: (1) Impulse control disorder, unspecified (2) Anxiety disorder, unspecified (3) Major neurocognitive disorder (4) Dementia, vascular, with depression (5) Dementia, vascular, with delusions (6) Dementia in Alzheimer's disease with depression (7) Dementia in Alzheimer's disease with delusions (8) Dementia of the Alzheimer's type with early onset with behavioral disturbance (9) Major depressive disorder, recurrent episode HUBERT PICKERING MD Feb 04, 2020 07:51
[2020-02-04] MEDS: POTASSIUM CHLORIDE 20 MEQ TABLET.ER. PO SCH (08:25)
[2020-02-04] MEDS: POLYETHYLENE GLYCOL 3350 17 GM PACKET. PO SCH (08:25)
[2020-02-04] MEDS: levETIRAcetam 500 MG TABLET PO SCH ×2 (08:26→20:00)
[2020-02-04] MEDS: CALCIUM CARB/VIT D3 500/200 TABLET PO SCH (08:26)
[2020-02-04] MEDS: MEMANTINE 10 MG TABLET. PO SCH ×2 (08:26→20:00)
[2020-02-04] MEDS: AMANTADINE HCL 100 MG CAPSULE PO SCH ×2 (08:26→19:59)
[2020-02-04] MEDS: LACTOBACILLUS RHAMNOSUS GG 1 CAPSULE. PO SCH (08:26)
[2020-02-04] MEDS: SENNOSIDES/DOCUSATE 8.6/50MG TABLET. PO SCH (08:26)
[2020-02-04] MEDS: MULTIVITAMIN with MINERAL TABLET. PO SCH (08:27)
[2020-02-04] MEDS: SERTRALINE 100 MG TABLET. PO SCH (08:27)
--- NOTE | 2020-02-04 10:54 | NUR ---
BERHANE returned call to pt Ashlyn who wanted to see if she could get pt sooner than later. BERHANE discussed with pt getting all of his appointments set up today and pt will continue to get a neurosurgeon appt set up and feels she can do that while pt is here. Pt is upset that pt has not been sleeping as after a week of being here, a night nurse called to inform her that he did not have a vital piece on his machine. "If he doesn't have that ofcourse he won't sleep". Pt will plan to pick pt up at 1500.
[2020-02-04 15:27] LABS: BACTERIA,URINE 0 /HPF (0-FEW); BILIRUBIN,URINE NEG (NEG); CLARITY,URINE CLEAR; COLOR,URINE YELLOW; GLUCOSE,URINE NEG (NEG); NITRITE,URINE NEG (NEG); RBC,URINE 0 /HPF (0-2); UROBILINOGEN,URINE 0.2 mg/dL (0.2 mg/dL)
--- NOTE | 2020-02-04 15:31 | NUR ---
[facility] Social Work Discharge Planning Form Patient Name SHAYNE PINO Admit Date: 26 January 2020 DISCHARGE PLAN Discharge Destination: Home with Care Assessment: N/A Level II Assessment: N/A Transportation: Pt , Ashlyn, to pick pt up around 1500 Special Instructions/Notes: Please fax medication list, discharge orders and discharge summary to the fax numbers listed below. SW faxed over a referral to the Neurosurgeon office as requested. DISCHARGE TO HOME: Address: [address] [facility]; [place] [address] Responsible [employer] Party: Ashlyn Pino [facility]; Pharmacy would need actual scripts signed by the physician OR called in Contact Information: [address]; [place] [address] [facility]: Dr. Brice Dinero, Psy.D Contact Information: [address]; [place], [place] [id number]; [place] [address] Phone: Appointment: 03 Mar 2020 @ 1:30Appointment: 17 February 2020 @ 3:30 ( If any appointments for Dr. Deleon and Mariann Dinero become available earlier, the office will call to move up the appointment) Neurology: Dr. Marie @ [facility] Contact Information: [address] [place] [address] Appointment: 17 March 2020 @ 3:30 Primary Care Follow Up: Dr. Linares Contact Information: [address] , [place] [address] Appointment: Can make an appt as needed
[2020-02-04 15:42] VITALS: BP 118/76
--- NOTE | 2020-02-04 17:00 | NUR ---
Nursing note: Pt in dining room for morning meds and assessment. He was happy, compliant with meds crushed in pudding, and cooperative with assessment. Pt continues to be disorganized and is very unsteady on his feet. He has spent most of the day in the day room, but laid in bed for a couple of hours this afternoon. Will continue to monitor.
--- NOTE | 2020-02-04 17:05 | NUR ---
[facility] Social Work Discharge Planning Form Patient Name SHAYNE PINO Admit Date: 26 January 2020 DISCHARGE PLAN Discharge Destination: Home with Care Assessment: N/A Level II Assessment: N/A Transportation: Pt , Ashlyn, to pick pt up around 1500 Special Instructions/Notes: Please fax medication list, discharge orders and discharge summary to the fax numbers listed below. SW faxed over a referral to the Neurosurgeon office as requested. DISCHARGE TO HOME: Address: [address] [facility]; [place] [id number] Responsible [employer]: Ashlyn Pino [facility]acy: [facility]; Pharmacy would need actual scripts signed by the physician OR called in Contact Information: [address]; [place] [address] Psychiatry ([facility]) : Dr. Deleon Contact Information: [address]; [place] [address] Appointment: 03 Mar 2020 @ 1:30 Psychologist ([facility]): Mariann Dinero Contact Information: [address]; [place] [address] Appointment: 17 February 2020 @ 3:30 ( If any appointments for Dr. Deleon and Mariann Dinero become available earlier, the office will call to move up the appointment) Neurology: Dr. Marie @ [facility] Contact Information: [address] [place] [address] Appointment: 17 March 2020 @ 3:30 Primary Care Follow Up: Dr. Linares Contact Information: [address] , [place] [address] Appointment: Can make an appt as needed
[2020-02-04] MEDS: MAGNESIUM OXIDE 400 MG TABLET PO SCH (19:59)
[2020-02-04] MEDS: OMEGA-3 FATTY ACIDS/FISH OIL 1,000 MG CAPSULE. PO SCH (19:59)
[2020-02-04] MEDS: MELATONIN 3 MG TABLET PO SCH (19:59)
[2020-02-04] MEDS ORDERED: ACET325T21 PO (21:33)
[2020-02-04] MEDS ORDERED: MAGN24003 PO (21:36)
[2020-02-04] MEDS ORDERED: MAG30ORA2 PO (21:36)
[2020-02-04] MEDS ORDERED: MELA3TAB43 PO (21:37)
[2020-02-04] MEDS ORDERED: METH28OI2 TP (21:39)
[2020-02-04] MEDS ORDERED: OLAN5TAB99 PO (21:41)
[2020-02-04] MEDS ORDERED: POLY17PO5 PO (21:42)
[2020-02-04] MEDS ORDERED: POTA20TA4 PO (21:44)
[2020-02-04] MEDS ORDERED: SENN1TAB62 PO (21:45)
--- NOTE | 2020-02-04 22:05 | PDOC ---
Exam Note: Xander Note: Please also refer to the separate dictated note~for this date of service dictated separately.~Patient seen individually. Discussed the patient with Nursing staff reviewed the chart.~Reviewed interim history and current functioning. Reviewed vital signs,~Labs/ Radiology~and current medications noted below. Continue current treatment with the changes noted in the dictated addendum note Assessment: Vital Signs/I&O: Vital Signs Date Time Temp Pulse Resp B/P (MAP) Pulse Ox O2 Delivery O2 Flow Rate FiO2 02/04/20 15:42 98.2 81 18 118/76 (90) 98 Room Air I & O 02/03/20 02/03/20 02/04/20 15:00 23:00 07:00 Intake Total 240 ml 480 ml Balance 240 ml 480 ml Labs: Laboratory Tests Test 02/04/20 06:20 02/04/20 14:15 White Blood Count 14.2 x10^3/uL (4.0-11.0) H Red Blood Count 4.79 x10^6/uL (4.30-5.70) Hemoglobin 14.6 g/dL (13.0-17.5) Hematocrit 43.2 % (39.0-53.0) Mean Corpuscular Volume 90 fL (79-100) Mean Corpuscular Hemoglobin 31 pg (25-35) Mean Corpuscular Hemoglobin Concent 34 g/dL (31-37) Red Cell Distribution Width 14.8 % (11.5-14.5) H Platelet Count 234 x10^3/uL (140-400) Neutrophils (%) (Auto) 37 % (31-73) Lymphocytes (%) (Auto) 55 % (24-48) H Monocytes (%) (Auto) 5 % (0-9) Eosinophils (%) (Auto) 2 % (0-3) Basophils (%) (Auto) 1 % (0-3) Neutrophils # (Auto) 5.3 x10^3uL (1.8-7.7) Lymphocytes # (Auto) 7.8 x10^3/uL (1.0-4.8) H Monocytes # (Auto) 0.7 x10^3/uL (0.0-1.1) Eosinophils # (Auto) 0.2 x10^3/uL (0.0-0.7) Basophils # (Auto) 0.1 x10^3/uL (0.0-0.2) Sodium Level 141 mmol/L (136-145) Potassium Level 3.7 mmol/L (3.5-5.1) Chloride Level 105 mmol/L (98-107) Carbon Dioxide Level 28 mmol/L (21-32) Anion Gap 8 (6-14) Blood Urea Nitrogen 27 mg/dL (8-26) H Creatinine 1.3 mg/dL (0.7-1.3) Estimated GFR (Cockcroft-Gault) 55.6 BUN/Creatinine Ratio 21 (6-20) H Glucose Level 112 mg/dL (70-99) H Calcium Level 8.8 mg/dL (8.5-10.1) Total Bilirubin 0.6 mg/dL (0.2-1.0) Aspartate Amino Transferase (AST) 21 U/L (15-37) Alanine Aminotransferase (ALT) 27 U/L (16-63) Alkaline Phosphatase 118 U/L (46-116) H Total Protein 7.5 g/dL (6.4-8.2) Albumin 3.7 g/dL (3.4-5.0) Albumin/Globulin Ratio 1.0 (1.0-1.7) Urine Collection Type Unknown Urine Color Yellow Urine Clarity Clear Urine pH 5.5 Urine Specific [place] >=1.030 Urine Protein Neg (NEG-TRACE) Urine Glucose (UA) Neg mg/dL (NEG) Urine Ketones (Stick) Neg mg/dL (NEG) Urine Blood Neg (NEG) Urine Nitrite Neg (NEG) Urine Bilirubin Neg (NEG) Urine Urobilinogen Dipstick 0.2 mg/dL (0.2 mg/dL) Urine Leukocyte Esterase Neg (NEG) Urine RBC 0 /HPF (0-2) Urine WBC 1-4 /HPF (0-4) Urine Bacteria 0 /HPF (0-FEW) Current Medications: I have reviewed the current psychotropics carefully including drug interactions. Risk benefit ratio favors no change other than as noted in my dictated progress note. Diagnosis: Problems: (1) Impulse control disorder, unspecified (2) Anxiety disorder, unspecified (3) Dementia, vascular, with depression (4) Dementia, vascular, with delusions (5) Dementia in Alzheimer's disease with depression (6) Dementia in Alzheimer's disease with delusions (7) Dementia of the Alzheimer's type with early onset with behavioral disturbance (8) Major depressive disorder, recurrent episode (9) Major neurocognitive disorder HUBERT PICKERING MD Feb 04, 2020 22:05
--- NOTE | 2020-02-05 01:06 | NUR ---
Last evening pt was in the day room watching a movie and visiting with others. He has been pleasant and cooperative. Meds were taken with some prompting. He has been unsteady on feet and requiring 2 person assist because his movements are unpredictable. Since going to bed he has been restless in bed and sleeping only intermittently. No behaviors tonight.
[2020-02-05 04:11] VITALS: BP 124/79
[2020-02-05] MEDS: MAGNESIUM HYDROXIDE 2,400 MG/30 ML ORAL.SUSP. PO PRN (05:36)
[2020-02-05] MEDS: POLYETHYLENE GLYCOL 3350 17 GM PACKET. PO SCH (08:47)
[2020-02-05] MEDS: POTASSIUM CHLORIDE 20 MEQ TABLET.ER. PO SCH (08:48)
[2020-02-05] MEDS: MULTIVITAMIN with MINERAL TABLET. PO SCH (08:49)
[2020-02-05] MEDS: SERTRALINE 100 MG TABLET. PO SCH (08:49)
[2020-02-05] MEDS: AMANTADINE HCL 100 MG CAPSULE PO SCH (08:49)
[2020-02-05] MEDS: MEMANTINE 10 MG TABLET. PO SCH (08:49)
[2020-02-05] MEDS: CALCIUM CARB/VIT D3 500/200 TABLET PO SCH (08:49)
[2020-02-05] MEDS: levETIRAcetam 500 MG TABLET PO SCH (08:49)
[2020-02-05] MEDS: SENNOSIDES/DOCUSATE 8.6/50MG TABLET. PO SCH (08:49)
[2020-02-05] MEDS: LACTOBACILLUS RHAMNOSUS GG 1 CAPSULE. PO SCH (08:49)
--- NOTE | 2020-02-05 10:05 | NUR ---
Pt is calm, confused, cooperative, and compliant. No agitation, no aggression, no hallucinations. No delusions. He is compliant with his medication and assessment.
--- NOTE | 2020-02-05 11:07 | PN ---
DATE: SUBJECTIVE: The patient denies any new medical or neurological complaints. He continues to have intermittent tremor of the upper extremities and unsteady gait. The patient has tendency to fall. He uses a walker. He is confined to wheelchair. I have had a chance to talk to his and his previous neurologist, Dr. Marie from [facility]. I was able to review his brain MRI performed last year, and after discussion with his previous neurologist, Dr. Marie, he told me the patient has PET scan done and he had extensive neurological workup at [facility]. He was diagnosed with Alzheimer type dementia and he was given amantadine for generalized weakness as well. The patient did have previous abnormal EEG consistent with posterior temporal sharp waves. Therefore, he was placed on anticonvulsant levetiracetam 500 mg twice daily. The patient has not had any recurrent seizures since. OBJECTIVE: GENERAL: Well-developed, well-nourished male, not in acute distress. VITAL SIGNS: Blood pressure 124/79, respiratory rate 20, pulse is 72, oxygen saturation is 97% on room air, and temperature 97.7. HEENT: Normocephalic, atraumatic, otherwise unremarkable. NECK: Supple. Negative for carotid bruit, lymphadenopathy or thyromegaly. LUNGS: Clear to A and P. CARDIOVASCULAR: Regular rate and rhythm, normal S1, S2. There is no S3, S4 or murmurs. ABDOMEN: Soft. Bowel sounds positive. EXTREMITIES: Negative for cyanosis, clubbing or edema. NEUROLOGICAL EXAM: Mental Status: The patient is alert, but disoriented to time, place and person. The speech is slow with low volume consistent with underlying dementia. Further evaluation is limited. Cranial nerves 2-12 are intact. Motor examination: No focal muscle bulk wasting. The tone is normal. The strength is 4/5 throughout. The patient has intermittent tremor of the upper extremities. Sensory examination revealed normal pinprick, light touch, vibratory and position senses. Deep tendon reflexes were symmetric and hypoactive with absent Achilles responses. Gait: The patient has unsteady stand and he uses a walker for ambulation. LABORATORY DATA: From 02/04/2020 revealed white blood cells of 14.2 thousand, hemoglobin 14.6, hematocrit 43.2, platelet count 234,000. Chemistry revealed sodium of 141, potassium 3.7, chloride 105, CO2 of 28, BUN 27, creatinine 1.3, glucose is 112, calcium 8.8. Urinalysis is negative for urinary tract infections. IMPRESSION: 1. History of seizure disorder, but no recurrence since admission with abnormal EEG consistent with posterior parietotemporal sharp waves. 2. Extensive neurological workup in the past revealed evidence of Alzheimer type. 3. Multiple psychiatric problems including depressions, dementia and behavior disturbances along with anxiety disorders and generalized weakness. 4. Normal head CT scan consistent with generalized atrophy and possible normal pressure hydrocephalus; however, brain MRI and previous extensive neurological workup was not consistent with that. Therefore, we will hold on neurosurgery evaluation for now; however, the patient is symptomatic consistent with urinary incontinence, gait disturbances, and dementia. RECOMMENDATIONS: Continue with current medical and psychiatric care. M Amol TYLER MD DR: APRIL/bryn JOB#: [id number] / [id number]
[2020-02-05 11:50] LABS: BASO # 0.1 x10^3/uL (0.0-0.2); BASO % 0 % (0-3); EOS # 0.2 x10^3/uL (0.0-0.7); EOS % 1 % (0-3); HEMOGLOBIN 14.5 g/dL (13.0-17.5); LYMPH # 7.2 x10^3/uL (1.0-4.8); LYMPH % 58 % (24-48); MEAN CORPUSCULAR HEMOGLOBIN 31 pg (25-35); MEAN CORPUSCULAR HGB CONC 34 g/dL (31-37); MEAN CORPUSCULAR VOLUME 91 fL (79-100); MONO # 0.6 x10^3/uL (0.0-1.1); MONO % 5 % (0-9); NEUT # 4.4 x10^3uL (1.8-7.7); NEUT % 35 % (31-73); PLATELET COUNT 229 x10^3/uL (140-400); RED BLOOD COUNT 4.75 x10^6/uL (4.30-5.70); RED CELL DISTRIBUTION WIDTH 14.5 % (11.5-14.5); WHITE BLOOD COUNT 12.4 x10^3/uL (4.0-11.0)
[2020-02-05 12:06] LABS: ALBUMIN 3.7 g/dL (3.4-5.0); CALCIUM 9.2 mg/dL (8.5-10.1); CREATININE 1.5 mg/dL (0.7-1.3); GFR 47.1; POTASSIUM 3.9 mmol/L (3.5-5.1); TOTAL BILIRUBIN 0.7 mg/dL (0.2-1.0); TOTAL PROTEIN 7.5 g/dL (6.4-8.2)
--- NOTE | 2020-02-05 15:05 | NUR ---
Transition Record was faxed to follow-up provider with the following elements: Reason for admission, procedures, tests, principal diagnosis, pending studies, patient instructions, 17/02 contact information for unit, phone number to obtain pending test results, plan for follow-up care, physician follow-up, advanced directive information, and medication list with dose, duration and instructions. This information was included in the following documents: History and physical, lab results, study results, progress notes, social work planning form, DC instruction form, patient visit summary, and medication reconciliation form. Date & time record faxed:02/04/2020 3084, 02/04/2020 2691, 02/04/2020 1449, 02/05/2020 1303 Record faxed to: [facility], [facility], Dr. Linares. Record discussed with/ report given to: , DPOA Ashlyn- Verbalized and acknowledged understanding of DC instructions.
[2020-02-05 15:29] LABS: LYMPH % 56 % (24-48)
--- NOTE | 2020-02-05 22:18 | DS ---
DATE OF DISCHARGE: 02/05/2020 REASON FOR ADMISSION: Please refer to the admission history for details. 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 The patient had been confused, declining cognitively, lethargic, anxious, had indicated he had no will to live. He was sleeping all day, had suicidal ideation, no plan. He is up at night. He failed outpatient psychiatric interventions. Behaviors were deemed dangerous, potential risk to himself, unmanageable by his at home, referred for inpatient psychiatric stabilization. SIGNIFICANT FINDINGS AND CLINICAL COURSE: Following admission, patient was seen daily individually by myself from a psychiatric standpoint, medical followup per Dr. Ramos/Dr. Moseley. The patient also had a Neurology consult with Dr. Henderson given his questionable normal pressure hydrocephalus and we would also recommend that the follow up outpatient with a neurosurgeon to seek any interventions that may be indicated post-discharge. SIGNIFICANT FINDINGS AND CLINICAL COURSE: Following admission, patient was seen daily individually by myself medically Dr. Moseley/Dr. Ramos. He remained confused, anxious, restless. Adjustments were made in his psychotropics and he seemed to be doing better on a combination of Namenda 10 mg b.i.d., Zoloft adjusted to 125 mg a day, Zyprexa p.r.n., trazodone p.r.n., melatonin 3 mg at bedtime. He was also on Keppra 500 mg b.i.d. for seizure disorder. The patient had significant insomnia. was convinced that this was partly because he was not using the CPAP machine here in the hospital and she was quite insistent on discharging him somewhat prematurely and he was discharged on 02/05/2020. REVIEW OF SYSTEMS: Prior to discharge, no CV, , pulmonary, eye, ENT system symptoms on review. MENTAL STATUS EXAM: Oriented to himself. Insight, judgment, recent and remote memory, attention, concentration, fund of knowledge poor, consistent with his diagnosis. FINAL DIAGNOSES: Major neurocognitive disorder, Alzheimer, vascular with delusion, depression, behavioral disturbance; anxiety disorder, unspecified; impulse control disorder, unspecified. He had a mild leukocytosis. DISCHARGE MEDICATIONS: Please refer to the MRAD. DISCHARGE INSTRUCTIONS: Outpatient psychiatric and medical followup with his primary care physician. Time for discharge day management greater than 30 minutes. HUBERT PICKERING MD DR: KEHINDE/bryn JOB#: [id number] / [id number]
--- NOTE | 2020-02-05 22:27 | PDOC ---
Exam Note: Xander Note: Please also refer to the separate dictated note~for this date of service dictated separately.~Patient seen individually. Discussed the patient with Nursing staff reviewed the chart.~Reviewed interim history and current functioning. Reviewed vital signs,~Labs/ Radiology~and current medications noted below. Continue current treatment with the changes noted in the dictated addendum note Assessment: Vital Signs/I&O: Vital Signs Date Time Temp Pulse Resp B/P (MAP) Pulse Ox O2 Delivery O2 Flow Rate FiO2 02/05/20 04:11 97.7 72 20 124/79 (94) 97 02/04/20 15:42 Room Air I & O 02/04/20 02/04/20 02/05/20 15:00 23:00 07:00 Intake Total 960 ml 600 ml Balance 960 ml 600 ml Labs: Laboratory Tests Test 02/05/20 11:10 White Blood Count 12.4 x10^3/uL (4.0-11.0) H Red Blood Count 4.75 x10^6/uL (4.30-5.70) Hemoglobin 14.5 g/dL (13.0-17.5) Hematocrit 43.0 % (39.0-53.0) Mean Corpuscular Volume 91 fL (79-100) Mean Corpuscular Hemoglobin 31 pg (25-35) Mean Corpuscular Hemoglobin Concent 34 g/dL (31-37) Red Cell Distribution Width 14.5 % (11.5-14.5) Platelet Count 229 x10^3/uL (140-400) Neutrophils (%) (Auto) 35 % (31-73) Lymphocytes (%) (Auto) 58 % (24-48) H Monocytes (%) (Auto) 5 % (0-9) Eosinophils (%) (Auto) 1 % (0-3) Basophils (%) (Auto) 0 % (0-3) Neutrophils # (Auto) 4.4 x10^3uL (1.8-7.7) Lymphocytes # (Auto) 7.2 x10^3/uL (1.0-4.8) H Monocytes # (Auto) 0.6 x10^3/uL (0.0-1.1) Eosinophils # (Auto) 0.2 x10^3/uL (0.0-0.7) Basophils # (Auto) 0.1 x10^3/uL (0.0-0.2) Sodium Level 141 mmol/L (136-145) Potassium Level 3.9 mmol/L (3.5-5.1) Chloride Level 104 mmol/L (98-107) Carbon Dioxide Level 31 mmol/L (21-32) Anion Gap 6 (6-14) Blood Urea Nitrogen 31 mg/dL (8-26) H Creatinine 1.5 mg/dL (0.7-1.3) H Estimated GFR (Cockcroft-Gault) 47.1 BUN/Creatinine Ratio 21 (6-20) H Glucose Level 108 mg/dL (70-99) H Calcium Level 9.2 mg/dL (8.5-10.1) Total Bilirubin 0.7 mg/dL (0.2-1.0) Aspartate Amino Transferase (AST) 22 U/L (15-37) Alanine Aminotransferase (ALT) 27 U/L (16-63) Alkaline Phosphatase 119 U/L (46-116) H Total Protein 7.5 g/dL (6.4-8.2) Albumin 3.7 g/dL (3.4-5.0) Albumin/Globulin Ratio 1.0 (1.0-1.7) Current Medications: I have reviewed the current psychotropics carefully including drug interactions. Risk benefit ratio favors no change other than as noted in my dictated progress note. Diagnosis: Problems: (1) Impulse control disorder, unspecified (2) Anxiety disorder, unspecified (3) Major neurocognitive disorder (4) Dementia, vascular, with depression (5) Dementia, vascular, with delusions (6) Dementia in Alzheimer's disease with depression (7) Dementia in Alzheimer's disease with delusions (8) Dementia of the Alzheimer's type with early onset with behavioral disturbance (9) Major depressive disorder, recurrent episode HUBERT PICKERING MD Feb 05, 2020 22:27
--- NOTE | 2020-02-06 07:06 | PDOC ---
Exam Note: Xander Note: This note is a late entry for 02/04/2020 covers elements not covered in my initial note. Subjective: The patient was seen individually in the evening of 02/04/2020. Per Rosy SPRING, he did not sleep at all previous night. His feels he is not sleeping because of not using the CPAP machine and she is quite clear she wants him to be discharged on Friday, 02/04. WBC is increased. We will check with Dr. Moseley regarding discharge plans and repeat CBC in the morning. Review of Systems: No CV, , pulmonary, eye, ENT system symptoms on review. Mental Status Exam: Oriented to himself. Insight and judgment, recent and remote memory, attention and concentration, fund of knowledge is poor consistent with his diagnoses. Laboratory Data: Reviewed. Impression: Major neurocognitive disorder, possible vascular with delusion, depression behavioral disturbance. Major depressive disorder. Anxiety disorder unspecified. Plan: No change from initial note. Assessment: Vital Signs/I&O: Vital Signs Date Time Temp Pulse Resp B/P (MAP) Pulse Ox O2 Delivery O2 Flow Rate FiO2 02/05/20 04:11 97.7 72 20 124/79 (94) 97 02/04/20 15:42 Room Air I & O 02/05/20 02/05/20 02/06/20 15:00 23:00 07:00 Intake Total 720 ml Balance 720 ml Labs: Laboratory Tests Test 02/05/20 11:10 White Blood Count 12.4 x10^3/uL (4.0-11.0) H Red Blood Count 4.75 x10^6/uL (4.30-5.70) Hemoglobin 14.5 g/dL (13.0-17.5) Hematocrit 43.0 % (39.0-53.0) Mean Corpuscular Volume 91 fL (79-100) Mean Corpuscular Hemoglobin 31 pg (25-35) Mean Corpuscular Hemoglobin Concent 34 g/dL (31-37) Red Cell Distribution Width 14.5 % (11.5-14.5) Platelet Count 229 x10^3/uL (140-400) Neutrophils (%) (Auto) 35 % (31-73) Lymphocytes (%) (Auto) 58 % (24-48) H Monocytes (%) (Auto) 5 % (0-9) Eosinophils (%) (Auto) 1 % (0-3) Basophils (%) (Auto) 0 % (0-3) Neutrophils # (Auto) 4.4 x10^3uL (1.8-7.7) Lymphocytes # (Auto) 7.2 x10^3/uL (1.0-4.8) H Monocytes # (Auto) 0.6 x10^3/uL (0.0-1.1) Eosinophils # (Auto) 0.2 x10^3/uL (0.0-0.7) Basophils # (Auto) 0.1 x10^3/uL (0.0-0.2) Sodium Level 141 mmol/L (136-145) Potassium Level 3.9 mmol/L (3.5-5.1) Chloride Level 104 mmol/L (98-107) Carbon Dioxide Level 31 mmol/L (21-32) Anion Gap 6 (6-14) Blood Urea Nitrogen 31 mg/dL (8-26) H Creatinine 1.5 mg/dL (0.7-1.3) H Estimated GFR (Cockcroft-Gault) 47.1 BUN/Creatinine Ratio 21 (6-20) H Glucose Level 108 mg/dL (70-99) H Calcium Level 9.2 mg/dL (8.5-10.1) Total Bilirubin 0.7 mg/dL (0.2-1.0) Aspartate Amino Transferase (AST) 22 U/L (15-37) Alanine Aminotransferase (ALT) 27 U/L (16-63) Alkaline Phosphatase 119 U/L (46-116) H Total Protein 7.5 g/dL (6.4-8.2) Albumin 3.7 g/dL (3.4-5.0) Albumin/Globulin Ratio 1.0 (1.0-1.7) Current Medications: I have reviewed the current psychotropics carefully including drug interactions. Risk benefit ratio favors no change other than as noted in my dictated progress note. Diagnosis: Problems: (1) Impulse control disorder, unspecified (2) Anxiety disorder, unspecified (3) Major neurocognitive disorder (4) Dementia, vascular, with depression (5) Dementia, vascular, with delusions (6) Dementia in Alzheimer's disease with depression (7) Dementia in Alzheimer's disease with delusions (8) Dementia of the Alzheimer's type with early onset with behavioral disturbance (9) Major depressive disorder, recurrent episode HUBERT PICKERING MD Feb 06, 2020 07:06
== END 2020-02-05 15:10 | disposition home or self-care (01) | DRG 885 ==
LOC: ER 10:42 → GEROPSY 14:02
PROVIDERS: ADMIT Psychiatry & Neurology Psychiatry; ATTEND Psychiatry & Neurology Psychiatry
DX: F33.9 Major depressive disorder, recurrent, unspecified (principal); C91.10 Chronic lymphocytic leukemia of B-cell type not having achieved remission; F02.81 Dementia in other diseases classified elsewhere, unspecified severity, with behavioral disturbance; R45.851 Suicidal ideations; R47.01 Aphasia; E78.00 Pure hypercholesterolemia, unspecified; E78.5 Hyperlipidemia, unspecified; F01.50 Vascular dementia, unspecified severity, without behavioral disturbance, psychotic disturbance, mood disturbance, and anxiety; F63.9 Impulse disorder, unspecified; F41.9 Anxiety disorder, unspecified; G20 Parkinson's disease; G30.9 Alzheimer's disease, unspecified; G40.909 Epilepsy, unspecified, not intractable, without status epilepticus; G47.33 Obstructive sleep apnea (adult) (pediatric); Z66 Do not resuscitate; Z79.899 Other long term (current) drug therapy; Z95.0 Presence of cardiac pacemaker; M19.90 Unspecified osteoarthritis, unspecified site
CPT/HCPCS: 36415; 70450; 80053; 80061; 81001; 82306; 82607; 83036; 83540; 83550; 83735; 84436; 84443; 84480; 85007; 85025; 86592; 93005; 97530; 99285-25